=== PATIENT | male | born 1960 | race Caucasian/White ===

== ENCOUNTER 2021-08-11 09:43 | Outpatient (CLI) | payer BC, SELFPAY ==
--- NOTE | 2021-08-11 09:52 | US_ITS ---
WS: [id number] RIGHT UPPER QUADRANT ULTRASOUND HISTORY: RUQ PAIN COMPARISON: None available. Liver: 16.6 cm in length. Normal size liver. No bile duct dilatation or mass. Gallbladder: Normally distended gallbladder with no stones or wall thickening. CBD: 0.8 cm, mildly enlarged. Pancreas: Obscured by bowel gas. Right kidney: 11.2 cm in length. Normal size and echogenicity. No hydronephrosis or mass. Aorta and IVC: Unremarkable abdominal aorta and IVC. No ascites. US/US abdomen limited 57715 IMPRESSION: 1. Normal gallbladder. 2. Mildly dilated common bile duct of uncertain etiology. The pancreatic head and pancreas are not visualized due to bowel gas. Recommend follow-up CT of the abdomen and pelvis with IV and oral contrast. Pancreatic head needs to be eval uated for possible mass. There is no intrahepatic dilatation.
== END 2021-08-11 09:44 | disposition home or self-care (01) ==
LOC: RAD 09:45
PROVIDERS: PCP Family Medicine; Visit Provider Family Medicine
DX: R10.11 Right upper quadrant pain (principal)
CPT/HCPCS: 76705

== ENCOUNTER 2021-09-13 13:47 | Outpatient (CLI) | payer BC, SELFPAY ==
--- NOTE | 2021-09-13 13:59 | CT_ITS ---
WS: [id number] CT ABDOMEN PELVIS TECHNIQUE: Contrast-enhanced CT of the abdomen and pelvis with coronal and sagittal reformatted image s. CLINICAL INFORMATION: ABD PAIN, ABNORMAL U/S COMPARISON: Ultrasound August 11, 2021 DLP: 1073.[address] scans at [facility] use at least one of these dose optimization techniques: automated e xposure control; mA and/or kV adjustment per patient size (includes targeted exams where dose is matc hed to clinical indication); or iterative reconstruction. FINDINGS: Mild hepatomegaly. Normal spleen. Lung bases are well aerated. Gallbladder is contracted. Normal GE j unction. Adrenal glands are normal. No evidence of pancreatic head mass. Normal pancreatic parenchyma l enhancement. No intrahepatic biliary ductal dilatation. Sigmoid diverticulosis. No acute diverticulitis. No evidence of high-grade small or large bowel obstr uction. Normal appendix in the right lower quadrant. Calcified slightly enlarged prostate measuring 5 .2 CM. No abdominal or pelvic lymphadenopathy. No inguinal lymphadenopathy. CT/CT abdomen pelvis w con* [id number] IMPRESSION: 1. No evidence of pancreatic mass or pancreatic head lesion. No intrahepatic b iliary ductal dilatation. 2. Mild hepatomegaly. 3. Gallbladder is contracted. 4. Sigmoid diverticulosis. No evidence of acute diverticulitis. 5. Mild prostate enlargement. Recommend correlation PSA.
[2021-09-13] MEDS: iohexol 300 mg/mL 50 mL Btl PO (15:05)
[2021-09-13 16:04] LABS: Blood Urea Nitrogen 13 mg/dL (8-23); Glomerular Filtration Rate 75.7 mL/min (90-130)
[2021-09-13] MEDS: iohexol 350 mg/mL 100 mL Btl IV (16:13)
== END 2021-09-13 13:48 | disposition home or self-care (01) ==
PROVIDERS: PCP Family Medicine; Visit Provider Family Medicine
DX: R10.9 Unspecified abdominal pain (principal); R16.0 Hepatomegaly, not elsewhere classified; K57.30 Diverticulosis of large intestine without perforation or abscess without bleeding; N40.0 Benign prostatic hyperplasia without lower urinary tract symptoms
CPT/HCPCS: 74177; 82565; 84520; Q9967

== ENCOUNTER → 2023-09-27 09:39 | Outpatient (BNVA) | payer BC, SELFPAY | PROVIDERS: PCP Nurse Practitioner Family; Visit Provider Nurse Practitioner Family | DX: I10 Essential (primary) hypertension (principal); E11.9 Type 2 diabetes mellitus without complications; Z76.89 Persons encountering health services in other specified circumstances | CPT/HCPCS: 80053; 80061; 83036; 85025 ==

== ENCOUNTER 2023-11-30 12:56 | Outpatient (CLI) | payer BC, SELFPAY ==
[2023-11-30 13:28] VITALS: BMI 31.9
--- NOTE | 2023-11-30 13:33 | ECG_ITS ---
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 Interpretive Statements NAME OF STUDY: TREADMILL STRESS ECHOCARDIOGRAM INDICATION: Chronic Chest Pain PROCEDURE: The baseline electrocardiogram showed normal sinus rhythm with normal ST-Ts. At the baseline, the patient's blood pressure was 151/88 mm Hg with a heart rate of 66. The patient exercised for 6 minutes and 49 seconds on a standard Buddy protocol. Patient attained a maximum heart rate of 130 beats per minute(83% of the maximum predicted heart rate) with a blood pressure at the peak exercise of 184/88 mm Hg. The EKG at the peak exercise revealed [address]ressions in leads II, III, aVF and V4 to V6.. Patient did complain about shortness of breath, burning sensation in the chest and pain with exercise. The symptoms gradually subsided during the recovery phase. The echocardiographic pictures were taken at the baseline, immediate post exercise and during the recovery phase, at the standard views. During the recovery phase, there were no new changes. EKG changes reverted back to the baseline. Blood pressure at the end of the recovery phase was 157/93 mm Hg with a heart rate of 73 per minute. CONCLUSION: 1. Abnormal EKG response to treadmill exercise suggesting inferolateral wall ischemia. 2. Exercise-induced chest pain and shortness of breath 3. Somewhat impaired exercise tolerance, attained a maximum of 10.2 METs 4. Echocardiographic pictures were taken at the standard views; see separate report. 5. Elkins treadmill score was -8(moderate) Electronically Signed On 11-30-2023 20:41:58 ARCHITECT IN TRAINING by Irene Bledsoe M.D. [id number]
--- NOTE | 2023-11-30 13:34 | USCV_ITS ---
Stress Echo Minesh Mon Age: 63 Gender: M : 1960 Exam Date: 11/30/2023 13:45 Ordering Phys: Gail Canales NP Technologist: Hussain Branch [place] [facility] [place]: Chronic Chest Pain Rhythm: Sinus Patient History: Chest pain, Smoker, Hypertension, Diabetes mellitus Cardiac Medications: EDWARD Inhibitor Medications in past 24 hours: No cardiac medications Contrast: Stress Results Protocol: Buddy Total dose(mL): Exercise Duration (min:sec): 06:49 METS: 10.2 Resting HR: 65 Resting BP: 151 / 88 Peak HR: 130 Peak BP: 208 / 99 Max Predicted HR: 156 83 % Max Predicted HR Target HR: 133 Double Product: [id number] Stress Summary: The patient's target heart rate was not achieved The patient's target heart rate was not achieved due to fatigue BP Response: Abnormal increase in BP during/after stress Reason for Termination: Maximal effort/unable to continue Cardiac Symptoms: Chest pain, Short of Breath, Fatigue ECG Analysis Resting ECG: Please see separate report Stress ECG: Please see separate report Arrhythmia: Please see separate report MEASUREMENTS (Male/Female) Normal Values FINDINGS The patient echocardiogram revealed normal LV size and ejection fraction. Segmental wall motion analysis revealed no gross wall motion abnormalities. With the peak exercise, there was development of hypokinesis in the inferior wall region. Rest of the segments appear to have a normal response to exercise. During the recovery phase, the segmental wall motions returned to the baseline. No pericardial effusion was noted. CONCLUSIONS 1. Abnormal echocardiogram response to treadmill exercise, suggesting ischemia in the distribution of the right coronary artery. 2. Normal resting LV ejection fraction of around 60% Dr Irene Bledsoe MD [facility] (Electronically Signed) Final Date: 30 November 2023 20:49 S
[2023-11-30 14:23] VITALS: BP 154/87; PULSE 82
== END 2023-11-30 12:57 | disposition home or self-care (01) ==
LOC: CDL 12:56
PROVIDERS: PCP Nurse Practitioner Family; Visit Provider Nurse Practitioner Family
DX: R07.89 Other chest pain (principal); G89.29 Other chronic pain; R93.1 Abnormal findings on diagnostic imaging of heart and coronary circulation; R06.02 Shortness of breath; R94.39 Abnormal result of other cardiovascular function study
CPT/HCPCS: 93017; 93350

== ENCOUNTER 2023-12-15 10:55 | Inpatient (IN) | payer BC, SELFPAY ==
[2023-12-15] VITALS (30 sets, daily range): BP systolic 109–154; BP diastolic 62–102; PULSE 55–73; RESP 13–28; TEMP 36.4–37.2; O2SAT 92–98; BMI 31.6
--- NOTE | 2023-12-15 11:06 | XR_ITS ---
WS: [id number] XR chest 1V portable [id number] REASON FOR EXAM: chest pain FINDINGS: Moderate tortuosity and ectasia of the thoracic aorta. Normal heart size. Calcified granulomas disease in both hemithoraces. No acute or subacute pulmonary parenchymal or pleural abnormality. 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 IMPRESSION: No acute chest abnormality.
--- NOTE | 2023-12-15 11:06 | ECG_ITS ---
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 Measurements Intervals [place] Rate: 69 P: 55 TN: 150 QRS: 51 QRSD: 93 T: 51 QT: 376 QTc: 403 Interpretive Statements SINUS RHYTHM MINIMAL ST DEPRESSION [0.025+ mV ST DEPRESSION] No previous ECG available for comparison Electronically Signed On 12-16-2023 5:58:10 PUMP ERECTOR by Bernabe Acosta M.D. [id number] f
--- NOTE | 2023-12-15 11:30 | ED_ITS ---
HPI - Chest Pain 2 General: Chief Complaint: Chest Pain Stated Complaint: chest pains Time Seen by Provider: 12/15/23 11:28 Source: patient Mode of arrival: ambulatory History of Present Illness: 63-year-old male presents emergency room with complaints of chest discomfort with activity. In November he had a stress test that was positive for hypokinesis with stress. Is a stress echocardiogram. Additionally it showed abnormal EKG response to his exercise suggesting inferior lateral wall ischemia. He also had exercise-induced chest pain and dyspnea. He has been having progressively worsening symptoms to the point where he has difficult time walking now without getting symptomatic with shortness of breath and discomfort into his neck although he does not cite any specific chest pain. He is pain- free at the time of evaluation here. He has not previously been known to have coronary disease he does have diabetes mellitus MD complaint: chest pain Onset (ago): minute(s) Timing of current episode: episodic Prior episodes: Yes Onset: during rest Pain location: substernal Pain radiation: neck Severity: moderate Quality: aching and heaviness Relieving factors: rest Exacerbating factors: exertion Associated symptoms: Deny abdominal pain, diaphoresis, dyspnea, fever(s), leg edema, nausea, palpitations, sense of impending doom, syncope or vomiting Treatment prior to arrival: none Review of Systems 2 Const: Denies: fever(s), chills or diaphoresis Card: Denies: chest pain, palpitations or syncope Resp: Denies: dyspnea GI: Denies: abdominal pain, nausea or vomiting : Denies: dysuria, urinary frequency or urinary urgency Musc: Denies: neck pain or back pain Skin/Breast: Denies: rash PFSH ED 2 PFSH: Medical History (Updated 12/23/23 @ 10:14 by Matty Bernard DO) Cardiac ischemia Elevated troponin Dyslipidemia Tobacco abuse Social History Smoking and tobacco/nicotine status: current every day tobacco/nicotine user cigars Cigars smoked per week: 5 Alcohol intake: never Physical Exam 2 Const: COMMON NORMALS: no acute distress GENERAL APPEARANCE: cooperative and comfortable ORIENTATION/CONSCIOUSNESS: Yes awake, Yes oriented to person, Yes oriented to place and Yes oriented to time HENMT: COMMON NORMALS: normocephalic, atraumatic and hearing grossly normal bilaterally HEAD & SCALP: normocephalic and atraumatic Resp: COMMON NORMALS: normal respiratory effort, No retractions, No use of accessory muscles and clear to auscultation bilaterally AUSCULTATION: clear to auscultation bilaterally Cardio: COMMON NORMALS: regular rate, regular rhythm and No murmurs present (Cardio) RATE: regular rate RHYTHM: regular rhythm GI: COMMON NORMALS: Soft to palpation and No hepatosplenomegaly present A USCULTATION: Yes normoactive bowel sounds PALPATION: Yes Soft to palpation, No Tenderness to palpation present (GI), No Guarding due to palpation present (GI) and Yes No hepatosplenomegaly present Extremity: COMMON NORMALS: normal to inspection, capillary refill normal, no clubbing, cyanosis or edema, no calf tenderness and no pedal edema Neuro: SENSORIUM/ORIENTATION: Yes oriented to person, Yes oriented to place and Yes oriented to time Skin: COMMON NORMALS: no rashes or lesions noted GENERAL SKIN EXAM: no rashes or lesions noted Course 2 Vital Signs: Vital signs: Vital Signs Temperature 98.4 F 12/16/23 11:06 Pulse Rate 61 12/16/23 17:03 Respiratory Rate 16 12/16/23 17:03 Blood Pressure 149/83 12/16/23 17:03 Pulse Oximetry 96 12/16/23 17:03 Oxygen Delivery Me thod Room Air 12/16/23 16:00 MDM - Chest Pain Medical Decision Making Patient has very classic angina symptoms and they are escalating at this point discussed with Dr. Garcia. Given his first troponin is over 300 and a positive stress test will admit the patient for cardiac catheterization. Nitro and heparin initiated discussed with hospitalist orders written Dr. Garcia is seeing patient in the department Medical Records I reviewed the patient's medical records. Lab Data I reviewed the patient's lab results. 12/16/23 04:02 12/16/23 04:02 Laboratory Results WBC 9.26 10^3/uL (3.29-11.43) 12/15/23 11:50 RBC 5.19 10^6/uL (3.85-5.65) 12/15/23 11:50 Hgb 16.40 g/dL (11.27-16.99) 12/15/23 11:50 Hct 47.7 % (37-53) 12/15/23 11:50 MCV 91.9 fl (82-101) 12/15/23 11:50 MCH 31.6 pg (27-33) 12/15/23 11:50 MCHC 34.4 g/dL (30-55) 12/15/23 11:50 RDW 12.1 % (12.1-15.1) 12/15/23 11:50 Plt Count 196 10^3/cmm (157-399) 12/15/23 11:50 MPV 11.2 fL (7.4-10.4) H 12/15/23 11:50 Neut % (Auto) 63.4 % 12/15/23 11:50 Lymph % (Auto) 27.4 % 12/15/23 11:50 [place] % (Auto) 6.6 % 12/15/23 11:50 Eos % (Auto) 1.7 % 12/15/23 11:50 Baso % (Auto) 0.5 % 12/15/23 11:50 Neut # (Auto) 5.86 10^3/uL (1.8-7.7) 12/15/23 11:50 Lymph # (Auto) 2.5 10^3/uL (0.8-4.8) 12/15/23 11:50 [place] # (Auto) 0.6 10^3/uL (0.2-0.9) 12/15/23 11:50 Eos # (Auto) 0.2 10^3/uL (0.0-0.8) 12/15/23 11:50 Baso # (Auto) 0.1 10^3/uL (0.0-0.1) 12/15/23 11:50 Nucleated RBC % (auto) 0 % 12/15/23 11:50 Nucleated RBCs # 0.0 /100WBC 12/15/23 11:50 Sodium 137 mmol/L (136-145) 12/15/23 11:50 Potassium 4.6 mmol/L (3.5-5.1) 12/15/23 11:50 Chloride 99 mmol/L (98-107) 12/15/23 11:50 Carbon Dioxide 25 mmol/L (22-29) 12/15/23 11:50 Anion Gap 17.6 (5-19) 12/15/23 11:50 BUN 14 mg/dL (8-23) 12/15/23 11:50 Creatinine 0.7 mg/dL (0.7-1.2) 12/15/23 11:50 GFR Calculation 113.5 mL/min (90-130) 12/15/23 11:50 Glucose 261 mg/dL (65-115) H 12/15/23 11:50 Calculated Osmolality 294 mOsm/kg (285-295) 12/15/23 11:50 Calcium 9.5 mg/dL (8.5-10.5) 12/15/23 11:50 Iron 54 ug/dL (59-158) L 12/15/23 11:50 TIBC 246 mcg/dl 12/15/23 11:50 % Saturation 21.9 % (20-50) 12/15/23 11:50 Unsat Iron Binding 192 ug/dL (112-347) 12/15/23 11:50 Total Bilirubin 0.3 mg/dL (0.15-1.2) 12/15/23 11:50 AST 16 U/L (0-40) 12/15/23 11:50 ALT 18 U/L (0-41) 12/15/23 11:50 Alkaline Phosphatase 131 U/L (40-130) H 12/15/23 11:50 Troponin T Baseline 341 ng/L (0-15) H* 12/15/23 11:50 Total Protein 6.9 g/dL (6.6-8.7) 12/15/23 11:50 Albumin 4.2 g/dL (3.5-5.2) 12/15/23 11:50 Globulin 2.7 g/dL (1.3-4.6) 12/15/23 11:50 Vitamin B12 845 pg/mL (232-1245) 12/15/23 11:50 TSH 1.14 uIU/mL (0.27-4.20) 12/15/23 11:50 All radiology interpretation(s) finalized by discharge Discharge Plan Discharge Patient Disposition: Admitted As Inpatient Admit Provider: Raysa George Clinical Impression: Non-ST elevation OK (NSTEMI), Abnormal stress test, Diabetes, Hypertension Condition: Stable Discharge Diet: Cardiac and Diabetic Coding Level of Care Code ED Rib Builder for Chg Bony
--- NOTE | 2023-12-15 11:50 | PC.PHAR ---
pt states he takes care of his own medications-pt states the dr dced his ozempic about a week to a week and a half ago-pt states the dr told him to increase his metformin to 1000mg bid ext shows last filled 11/01/23 90d/s 500mg bid-pt states doesnt take any otc medications
[2023-12-15 11:56] LABS: Basophils # 0.1 10^3/uL (0.0-0.1); Basophils % 0.5 %; Eosinophils # 0.2 10^3/uL (0.0-0.8); Eosinophils % 1.7 %; Hematocrit 47.7 % (37-53); Lymphocytes # 2.5 10^3/uL (0.8-4.8); Lymphocytes % 27.4 %; Mean Corpuscular HGB Conc 34.4 g/dL (30-55); Mean Corpuscular Hemoglobin 31.6 pg (27-33); Mean Corpuscular Volume 91.9 fl (82-101); Mean Platelet Volume 11.2 fL (7.4-10.4); Monocytes # 0.6 10^3/uL (0.2-0.9); Monocytes % 6.6 %; Neutrophils # 5.86 10^3/uL (1.8-7.7); Neutrophils % 63.4 %; Nucleated Red Blood Cells % 0 %; Platelet Count 196 10^3/cmm (157-399); Red Blood Count 5.19 10^6/uL (3.85-5.65); Red Cell Distribution Width 12.1 % (12.1-15.1); White Blood Count 9.26 10^3/uL (3.29-11.43)
[2023-12-15 12:19] LABS: Alanine Aminotransferase 18 U/L (0-41); Albumin Level 4.2 g/dL (3.5-5.2); Alkaline Phosphatase 131 U/L (40-130); Anion Gap 17.6 (5-19); Aspartate Amino Transferase 16 U/L (0-40); Blood Urea Nitrogen 14 mg/dL (8-23); Calcium 9.5 mg/dL (8.5-10.5); Carbon Dioxide 25 mmol/L (22-29); Chloride 99 mmol/L (98-107); Globulin 2.7 g/dL (1.3-4.6); Glomerular Filtration Rate 113.5 mL/min (90-130); Glucose 261 mg/dL (65-115); Osmolality Calculated 294 mOsm/kg (285-295); Potassium 4.6 mmol/L (3.5-5.1); Sodium 137 mmol/L (136-145); Total Bilirubin 0.3 mg/dL (0.15-1.2); Total Protein 6.9 g/dL (6.6-8.7)
[2023-12-15 12:20] LABS: Troponin(5th) Baseline 341 ng/L (0-15)
[2023-12-15] MEDS: aspirin 81 mg Chew Tablet 324 MG PO (12:54)
--- NOTE | 2023-12-15 13:19 | P.CONIM_ITS ---
Providers/Reason For Consult 2 Consulting Physician/Specialty*: Cardiovascular medicine Reason for Consult*: Non-ST segment elevation VT Requesting Physician: Emergency room Attending Physician: Raysa George MD Primary Care Provider: Gail Canales NP History of Present Illness History of Present Illness Minesh Mon is a 63 year old male with no known history of coronary artery disease but with several risk factors. For several weeks he has been having episodes of rather classic angina with exertion. He had a stent stress test the other day which was a stress echo. It was read as positive for inferolateral ischemia both by EKG and by echo. He also has hypertension, diabetes and is a smoker with hyperlipidemia. He came into the emergency room today with another episode of chest pain. His troponin is 331. Currently he is free of pain. He has been given heparin bolus and heparin drip as well as aspirin. Review of Systems 2 Narrative: Review of systems is negative Medications/Allergies Home Medications Medication Instructions Recorded Confirmed Last Taken Type amlodipine 5 mg tablet 5 mg PO BEDTIME 12/15/23 12/15/23 12/14/23 History lisinopril 40 mg tablet 40 mg PO BEDTIME 12/15/23 12/15/23 12/14/23 History meloxicam 15 mg tablet 15 mg PO BEDTIME 12/15/23 12/15/23 12/14/23 History metformin 500 mg tablet 1,000 mg PO BID 12/15/23 12/15/23 Unknown History semaglutide 0.25 mg or 0.5 mg (2 0.5 mg SUBCUT Q7D 12/15/23 12/15/23 12/06/23 History mg/3 mL) subcutaneous pen injector dced ~12/06/23 (Ozempic) Allergies Allergy/AdvReac Type Severity Reaction Status Date / Time Penicillins Allergy Severe ALGY-Anaphy Verified 12/15/23 11:50 laxis PFSH Acute 2 PFSH: Medical History (Updated 12/15/23 @ 13:23 by Lon Garcia MD) Elevated troponin Dyslipidemia Tobacco abuse Social History Smoking and tobacco/nicotine status: current every day tobacco/nicotine user cigars Cigars smoked per week: 5 Alcohol intake: never Vitals/I&O/Wt Last Vital Signs Temp 98.1 F 12/15/23 10:56 Pulse 58 L 12/15/23 12:35 Resp 20 H 12/15/23 12:05 BP 121/71 12/15/23 12:35 Pulse Ox 92 12/15/23 12:35 O2 Del Method Room Air 12/15/23 12:35 Weight last 48 hrs Weight 190 lb Physical Exam 2 Narrative: GENERAL: In general he looks and feels well and is in no distress now. HEENT: Exam within normal limits. NECK: Supple without jugular vein distention. The carotid upstroke is normal without bruits. BACK: Exam normal. LUNGS: Clear. HEART: Regular rate and rhythm. ABDOMEN: Benign without organomegaly or tenderness. EXTREMITIES: No edema. NEUROLOGIC: Exam normal. SKIN: Unremarkable. 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 His EKG is normal. He needs angiography. We will arrange this is soon as possible. Consult Attestations 2 Medical Necessity Statement: Admit for angiography for unstable angina/non-ST segment elevation [place] and Moderate Time for a total of 35 minutes, includes reviewing past or interval history, examining/interviewing patient, placing orders, counseling patient/family/other support, updating patient/family/other support, discussing plan of care with staff, communicating with other healthcare providers, documenting encounter and coordinating care Diagnoses Hypertension I10 Abnormal stress test R94.39 Cardiac ischemia I25.9 Type 2 diabetes mellitus without complication, without long-term current use of insulin E11.9 Diabetes mellitus type: type 2 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
--- NOTE | 2023-12-15 13:46 | XACV_ITS ---
Exam Room: [facility] Ht: 170 cm Wt: 86 kg BSA: 2.04 m2 Gender: Male : 1960 Any Known Allergies: Penicillins Exam Priority: Routine Procedure(s): Procedure Description: Diagnostic procedure Procedure Description: Left Heart Catheterization Procedure Description: Left ventriculography Procedure Description: Coronary Angiography Jose ABDULLAHI; Diagnostic Cath Status: Urgent Diagnostic Findings * Patient with typical angina and abnormal stress echo admitted today with troponin elevation but normal EKG. Angiography performed via the right radial artery. * Coronary angiography reveals right coronary artery dominance. The left main coronary artery contains a 30 to 40% ostial stenosis. There is a circumflex which is relatively small. There is a 50 to 60% ostial circumflex lesion. There is a 60% very proximal first obtuse marginal branch stenosis. There is a ramus intermedius artery which contains a 50% diffuse proximal stenosis and then a 99% stenosis in the mid vessel. The LAD is a large vessel and relatively tortuous. There is a proximal diagonal branch which has a 50 to 60% stenosis in the proximal portion. The LAD has a 40 to 50% mid vessel stenosis and a 70% stenosis in a very tortuous part of the more distal vessel. The right coronary artery is a very tortuous artery and exhibits a length of the 70 to 80% diffuse stenosis in the midportion at a point of significant tortuosity. More distally just prior to the acute margin there is a 60 to 70% stenosis. Conclusions 1. Three-vessel coronary artery disease with moderate left main disease. Normal left ventricular function. Recommendations * I am not sure which artery is the culprit here. It is either the ramus or the right coronary artery. The right would be extremely difficult to intervene upon due to the tortuosity. I am not comfortable simply trying the right or the ramus interventionally and think that his best bet long-term will be bypass surgery given the nature of the three-vessel disease and the left main lesion. I do not have surgical backup here and if the right were to close during an attempt at intervention it would be difficult getting him to the operating room quickly enough. Interventional RX Recommendation: CABG Diagnostic RX Recommendation: CABG Anticoagulation: Heparin Ventriculography Ejection Fraction: 60.0 % Left Ventriculography Findings: * Very slight hypokinesis in the mid inferior wall. Mild mitral regurgitation. Pressures Phase:Rest AO : 92 / 60 ( 72 ) @ 2:23:00 PM 91 / 56 ( 71 ) @ 2:28:00 PM 94 / 57 ( 73 ) @ 2:35:00 PM 91 / 41 ( 63 ) @ 2:46:00 PM LV : 125 / -16 / 8 @ 2:44:00 PM 116 / -23 / -2 @ 2:45:00 PM 118 / -24 / -1 @ 2:45:00 PM 115 / -24 / -2 @ 2:45:00 PM Clinical Evaluation EBL: 5mL-10mL Procedural Details Procedure Consent Obtained. Pre-Procedure Time Out. Identified patient by full name and date of as verbalized by the patient/guarantor. Does the consent match the physician's order: Yes. Accurate & Complete Informed Consent: Yes. Inpatient/Outpatient History & Physical on Chart: Yes. If H&P is completed, is and addenduem needed: No. Visualize and Verify Site with Patient/Guarantor: N/A. Relevant Radiology Images available: Yes. The risks, benefits, and alternatives of sedation and/or procedure were discussed by physician. The patient agrees to continue. Procedure started. [facility] Clinical Fraility Score: 3: Managing Well. Office Services Coordinator Indications: ACS > 24 hours/NSTEMI. Chest Pain Symptom Assessment: Typical Angina Symptoms. Cardiovascular Instability: No. Correct patient, site and procedure confirmed by cath team. PERRLA. Strong, equal hand steam press tender bilaterally. Lungs clear x 5 lobes. IV Site on Arrival: 20 gauge in the left anticubital. IV Fluids: 0.9% NaCl at KVO. 0 mL infused prior to wood preserving plant laborer. Pre Procedural Pulses: bilateral radial was 3+. Oxygen started at 2liters/min via nasal canula. right groin was prepped with chloroprep then draped in the usual sterile fashion. right radial was prepped with chloroprep then draped in the usual sterile fashion. Baseline sample Acquired. HR: 53 BPM. Baseline sample Acquired. HR: 53 BPM. Patient's family in the wood preserving plant laborer waiting room. Dr. Garcia will update at the completion of the procedure. Equipment: 6F - Radial. Cardiac Cath Pack. ACIST Manifold Kit Model BT 2000. Heparinized Saline (2 units/mL), 1000 mL bag. Physician arrived. Physician scrubbed in. Immediate Pre-Procedure Time Out. Correct Patient: Yes; Correct Procedure: Yes; Correct Site: Yes; Correct Patient Position: Yes; Correct Supplies: Yes; Dried Flammable Prep: Yes; Blood Products Available: N/A;. Lidocaine 1% infiltrated to the right radial. Arterial access obtained. A 6 [place] Kevin catheter in over the exchange J wire. Multiple views taken of left coronary artery. Catheter redirected to the RCA. Multiple views taken of right coronary artery. Catheter removed over the exchange J wire. A 5 [place] Straight Pig catheter in over wire. Catheter removed over the exchange J wire. A 6 [place] TIG catheter in over the exchange J wire. Catheter removed over the exchange J wire. A 5 [place] Straight Pig catheter in over the exchange J wire. EDP Sample taken: LV 125/-17,8; HR: 54 BPM; SpO2: 98%. LV gram performed in CORONADO @ 10 mL/second for a total of 30 mL. EDP Sample taken: LV 116/-24,-3; HR: 62 BPM; SpO2: 98%. EDP Sample taken: LV 115/-25,-3; HR: 53 BPM; SpO2: 98%. Pullback taken: LV Off; AO Off; Mean: , Peak to Peak: , SEP: ; HR: 53 BPM; SpO2: 98%. Catheter removed over the exchange J wire. Dr. Garcia scrubbed out. A TR Band was successful obtaining hemostatsis at the Right Radial artery insertion site. Post Procedure: Pulses reassessed and unchanged. PERRLA. Strong, equal hand steam press tender bilaterally. No VTE prophylaxis required. Medication's Wasted: Lidocaine 1% = 2 mL. Medication's Wasted: Heparin = 1000 Units. Medication's Wasted: Other = Fentanyl 25 mcg. Medication's Wasted: Nitro = 49.8 mg. Total IV fluids: 30 mL. Post-op diagnosis: 3 vessell CAD. Complications: none. Estimated blood loss: 5mL-10mL. Responsiveness - Normal response to verbal stimuli; alert and oriented, PERRLA. Airway - Unaffected, no intervention required; spontaneous ventilation. Circulation: W/N/L, pulses unchanged. Nausea/Vomiting: No. Vital chart was stopped. Procedure completed. Patient transferred by bed to 1st floor. Access Site Site: Right Radial artery Sheath Size: 6 Fr Hemostasis Method: TR Band Hemostasis Success: Successful Procedure Medications Start: 2:18 PM Stop: 2:18 PM Medication: Versed Amount: 1 mg Route: I.V. Start: 2:18 PM Stop: 2:18 PM Medication: Fentanyl Amount: 25 mcg Route: I.V. Start: 2:18 PM Stop: 2:18 PM Medication: Fentanyl Amount: 25 mcg Route: I.V. Start: 2:20 PM Stop: 2:20 PM Medication: Versed Amount: 1 mg Route: I.V. Start: 2:21 PM Stop: 2:21 PM Medication: Nitrogylcerin Amount: 200 mcg Route: I.A. Start: 2:22 PM Stop: 2:22 PM Medication: Heparin Amount: 5000 units Route: I.V. Start: 2:38 PM Stop: 2:38 PM Medication: Fentanyl Amount: 25 mcg Route: I.V. I, the attending physician, have reviewed and verified all procedure medications. Yes, all medications given per verbal order History/Risk Factors Hypertension: Yes Dyslipidemia: Yes Peripheral Arterial Disease (PAD): No Myocardial Infarction (NC): No Obesity: Yes Renal Disease: No Tobacco Use: Current/Recent(w/in 1 year) Prior Interventions PCI: No CABG: No Valve Surgery: No Report Signatures Amended by Dr. Lon Garcia MD on 12/15/2023 03:[address] Lon Garcia MD on 12/15/2023 03:17 PM
[2023-12-15] MEDS: diphenhydrAMINE 50 mg Capsule PO (13:55)
[2023-12-15] MEDS: sodium chloride 0.9% 1,000 ML 50 ML IV (13:55)
[2023-12-15] MEDS: aspirin 325 mg Tablet PO (13:55)
--- NOTE | 2023-12-15 14:29 | PM.HP ---
Providers/Chief Complaint Admitting Physician: Raysa George MD Primary Care Provider: Gail Canales NP Chief Complaint: chest pains History of Present Illness Minesh Mon is a 63 year old male with past medical dyslipidemia, abnormal stress test, uncontrolled type 2 diabetes mellitus, hypertension presents to the ER today because of ongoing chest pain since Monday. Today is Monday. As per patient he had chest pain first few days ago which is more so on the left side radiating to the shoulder which resolved by itself with few recurrence of the symptoms yesterday associated with nausea. Today morning when he woke up he was having pain during the shoulder in the jaw when his and family convinced him to come to the ER. In the ER he was found to have non-ST elevation [place] with troponins of 331. Cardiology was consulted edema started on heparin drip. Patient currently is being taken to the Training And Development Project Leader for further evaluation and management. Review of Systems General: Reports: 10 or more systems reviewed and unremarkable except in HPI and below Const: Denies: fever(s), chills, body aches, change in appetite, change in weight, malaise, night sweats, diaphoresis, change in sleep pattern, daytime sleepiness or snoring Eyes: Denies: change in vision, blurry vision, photophobia, eye discomfort or eye discharge ENMT: Denies: throat pain, enlarged tonsils, hoarseness, mouth pain, oral sores, dry mouth, tinnitus, nasal congestion or post nasal drip Card: Denies: chest pain, palpitations, irregular heart rhythm, edema, swelling of feet/ankles, lightheadedness, syncope, pre-syncope, dyspnea on exertion, orthopnea, leg pain with exertion or acrocyanosis Resp: Denies: dyspnea, productive cough, non-productive cough, wheezing, stridor, pain on inspiration, change in phlegm color, hemoptysis or chest congestion GI: Denies: abdominal pain, nausea, vomiting, hematemesis, coffee ground emesis, dysphagia, heartburn, diarrhea, constipation, bloating, GI cramping, change in bowel habits, pain on defecation, hematochezia or melena : Denies: flank pain, difficulty urinating, dysuria, urinary frequency, urinary urgency, urinary hesitancy, urinary dribbling, difficulty starting urination, change in urine stream, nocturia or hematuria Musc: Denies: neck pain, back pain, extremity pain, joint pain, joint swelling, joint redness, joint stiffness or limited range of motion Neuro: Denies: headache(s), numbness in extremities, weakness in extremities, sensory changes, lack of coordination, difficulty walking, frequent falls, dizziness, vertigo, confusion, Slurred speech present, difficulty communicating thoughts or seizure-like activity Psych: Denies: anxiety, depression, mood swings, panic attacks, hopelessness or irritability Endo: Denies: polyuria, polydipsia, tired all the time, cold intolerance, excessive sweating, flushing or heat intolerance Garfield/Lymph: Denies: easy bruising or easy bleeding All/Imm: Denies: tongue swelling, facial swelling or acute wheezing Medications/Allergies Home Medications Medication Instructions Recorded Confirmed Last Taken Type amlodipine 5 mg tablet 5 mg PO BEDTIME 12/15/23 12/15/23 12/14/23 History lisinopril 40 mg tablet 40 mg PO BEDTIME 12/15/23 12/15/23 12/14/23 History meloxicam 15 mg tablet 15 mg PO BEDTIME 12/15/23 12/15/23 12/14/23 History metformin 500 mg tablet 1,000 mg PO BID 12/15/23 12/15/23 Unknown History semaglutide 0.25 mg or 0.5 mg (2 0.5 mg SUBCUT Q7D 12/15/23 12/15/23 12/06/23 History mg/3 mL) subcutaneous pen injector dced ~12/06/23 (Ozempic) Allergies Allergy/AdvReac Type Severity Reaction Status Date / Time Penicillins Allergy Severe ALGY-Anaphy Verified 12/15/23 11:50 laxis PFSH Acute PFSH: Medical History (Updated 12/15/23 @ 16:44 by Travis Fontaine MD) Elevated troponin Dyslipidemia Tobacco abuse Social History Smoking and tobacco/nicotine status: current every day tobacco/nicotine user cigars Cigars smoked per week: 5 Alcohol intake: never Vitals/I&O/Wt Last Vital Signs Temp 98.1 F 12/15/23 10:56 Pulse 58 L 12/15/23 12:35 Resp 20 H 12/15/23 12:05 BP 121/71 12/15/23 12:35 Pulse Ox 92 12/15/23 12:35 O2 Del Method Room Air 12/15/23 12:35 Weight last 48 hrs Weight 86.183 kg Physical Exam Narrative: General: No acute distress, AO x3 HEENT: PERRLA, pupils bilaterally equal and reactive Chest: Normal vesicular breath sounds, no added sounds, equal good air entry bilaterally CVS: S1-S2 regular, no murmurs, no tachycardia, no gallops, no rubs Abdomen: Soft, nontender, no organomegaly, bowel sounds present Neuro: No focal deficits, no facial deformity, AO x3, power 5/5 in all limbs Data 12/15/23 11:50 12/15/23 11:50 A&P Assessment and plan (1) Non-ST elevation [place] (NSTEMI): Cardiology consulted. Plan to go for cardiac angiogram. Recent positive stress echocardiogram. Received 324 mg of aspirin in the ER. Continue with heparin and nitro drip for now. -Check A1c, lipid panel. Aspirin 81 mg daily, atorvastatin 80 mg daily. Patient having bradycardia so we will hold off on beta-john. Echocardiogram. Will follow the results of cardiac angiogram and further evaluation accordingly. (2) Hypertension: Goal blood pressure less than 140/90 mmHg. Takes amlodipine 5 mg and lisinopril 40 mg at home. For now hold off on medications and will restart as per goal blood pressures. (3) Abnormal stress test: (4) Dyslipidemia: (5) Diabetes: Check A1c. As per the family patient has been having uncontrolled hyperglycemia for last few weeks at home with blood sugars running in 300s. Insulin sliding scale moderate dose protocol. Will decide about long acting insulin as per insulin requirements He 4 hours. 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 Protonix for PUD prophylaxis Heparin will suffice as DVT prophylaxis Attestations Medical Necessity Statement*: Admission for more than 2 midnights for management of non-ST elevation [place] requiring cardiac angiogram and revascularization Diagnoses Non-ST elevation [place] (NSTEMI) I21.4 Hypertension I10 Abnormal stress test R94.39 Dyslipidemia E78.5 Type 2 diabetes mellitus without complication, without long-term current use of insulin E11.9 Diabetes mellitus type: type 2 Diabetes mellitus skilled nursing insulin use: without intermodal owner operator truck driver use Diabetes mellitus complication status: without complication Tobacco abuse Z72.0
[2023-12-15 15:21] LABS: Troponin 5 2HR 340.6 ng/L (0-15); Troponin 5 2HR Delta -0.4 ABS# (0-10)
[2023-12-15 15:26] LABS: Iron 54 ug/dL (59-158); Percent Saturation 21.9 % (20-50); Thyroid Stimulating Hormone 1.14 uIU/mL (0.27-4.20); Total Iron Binding Capacity 246 mcg/dl; Unsaturated Iron Binding 192 ug/dL (112-347); Vitamin B12 845 pg/mL (232-1245)
[2023-12-15] MEDS: pantoprazole 40 mg SDV IVP (16:17)
--- NOTE | 2023-12-15 16:36 | PM.MISC ---
Miscellaneous Note Note: Mr. Mon's cardiac catheterization revealed normal LV function with three-vessel disease and moderate left main disease. His best short and long-term treatment is coronary bypass surgery. He does not have a preference of tertiary care centers. He requested to go to [place]. Either [facility] or [facility] will be sufficient. I have made a compact disc of the cardiac catheterization and placed it in his chart on the first floor. The echo has not yet been completed. Once this is completed we will make a compact disc of this as well. He is perfectly stable and transfer can occur at any time. I think he probably should be transferred from this hospital to the receiving hospital given the frequency of his chest pain and non-ST segment elevation [place].
[2023-12-15 17:50] LABS: Add Urine Microscopic? NO; Charge for UA Resulting for Rev
[2023-12-15 17:58] LABS: Glucose Point of Care 249 mg/dL (70-110)
[2023-12-15 18:16] LABS: Bilirubin Urine Neg (Negative); Blood Urine Neg (Negative); Glucose Urine UA Norm (Normal); Ketones Urine Negative (Negative); Leukocyte Esterase Urine Negative (Negative); Nitrate Urine Negative (Negative); Protein Urine Neg (Negative); Specific Gravity, Urine 1.005 (1.005-1.030); Urine Appearance Clear (CLEAR); Urine Color Yellow (Yellow); Urobilinogen Urine Norm (Negative); pH Urine 7 (5-7)
[2023-12-15] MEDS: insulin lispro 100 unit/1 mL SUBCUT (18:40)
[2023-12-15 21:03] LABS: Glucose Point of Care 138 mg/dL (70-110)
[2023-12-15] MEDS: atorvastatin 40 mg Tablet 80 MG PO (21:14)
[2023-12-15] MEDS: diphenhydrAMINE 25 mg Capsule PO (21:14)
[2023-12-16] VITALS (56 sets, daily range): BP systolic 110–182; BP diastolic 51–120; PULSE 53–85; RESP 0–25; TEMP 36.8–36.9; O2SAT 93–98; BMI 31.4
[2023-12-16 04:21] LABS: Basophils # 0.1 10^3/uL (0.0-0.1); Basophils % 0.5 %; Eosinophils # 0.3 10^3/uL (0.0-0.8); Eosinophils % 2.6 %; Hematocrit 46.8 % (37-53); Lymphocytes # 2.5 10^3/uL (0.8-4.8); Mean Corpuscular HGB Conc 32.7 g/dL (30-55); Mean Corpuscular Hemoglobin 30.8 pg (27-33); Mean Corpuscular Volume 94.2 fl (82-101); Mean Platelet Volume 11.4 fL (7.4-10.4); Monocytes # 0.8 10^3/uL (0.2-0.9); Monocytes % 8.4 %; Neutrophils # 6.26 10^3/uL (1.8-7.7); Neutrophils % 63.1 %; Nucleated Red Blood Cells % 0 %; Platelet Count 187 10^3/cmm (157-399); Red Blood Count 4.97 10^6/uL (3.85-5.65); Red Cell Distribution Width 12.1 % (12.1-15.1); White Blood Count 9.92 10^3/uL (3.29-11.43)
[2023-12-16 04:46] LABS: Alanine Aminotransferase 15 U/L (0-41); Albumin Level 3.6 g/dL (3.5-5.2); Alkaline Phosphatase 117 U/L (40-130); Anion Gap 14.3 (5-19); Aspartate Amino Transferase 13 U/L (0-40); Blood Urea Nitrogen 15 mg/dL (8-23); Calcium 9.1 mg/dL (8.5-10.5); Carbon Dioxide 26 mmol/L (22-29); Chloride 104 mmol/L (98-107); Globulin 2.9 g/dL (1.3-4.6); Glomerular Filtration Rate 97.3 mL/min (90-130); Glucose 249 mg/dL (65-115); Magnesium 1.9 mg/dL (1.7-2.3); Osmolality Calculated 299 mOsm/kg (285-295); Phosphorus 3.2 mg/dL (2.5-4.5); Potassium 4.3 mmol/L (3.5-5.1); Sodium 140 mmol/L (136-145); Total Bilirubin 0.2 mg/dL (0.15-1.2); Total Protein 6.5 g/dL (6.6-8.7)
[2023-12-16 04:53] LABS: Folate Level 11.9 ng/mL (4.5-32.2)
--- NOTE | 2023-12-16 06:00 | USCV_ITS ---
Elieser Minesh Age: 63 Gender: M : 1960 Exam Date: 12/16/2023 10:47 Ordering Phys: Travis Fontaine MD Technologist: Kolby Blackwell [place] [facility] [place]stem[place] BP: 149 / 66 HR: 55 Rhythm: Sinus Technical Quality: Adequate MEASUREMENTS (Male / Female) Normal Values 2D ECHO LVOT Diameter 2.1 cm LV Ejection Fraction MOD 2C 55.6 % LV Ejection Fraction 2C AL 54.5 % LA Diameter 3.2 cm LA Width 3.2 cm LA Height 4.1 cm RA Width 3.1 cm RA Height 4.4 cm Aorta at Sinotubular Diameter 2.6 cm IVC Diameter 1.7 cm M-MODE Aortic Annulus Diameter 2.9 cm LA Ao Ratio MM 1.1 MV E Point Septal Separation 0.7 cm DOPPLER AV Peak Velocity 212.7 cm/s LVOT Peak Velocity 109.0 cm/s AV Area Cont Eq vti 1.9 cm squared AV Area Cont Eq pk 1.9 cm squared MV Peak Velocity 98.0 cm/s MV Area PHT 2.2 cm squared Mitral E to A Ratio 0.5 MV E' Velocity 30.0 cm/s Mitral E to MV E' Ratio 5.3 Mitral E to LV E' Lateral Ratio 4.4 Mitral E to LV E' Septal Ratio 6.7 TR Peak Velocity 218.5 cm/s TR Peak Gradient 19.1 mmHg TR Mean Velocity 170.1 cm/s TR Mean Gradient 12.0 mmHg TR Velocity Time Integral 42.5 cm Right Atrial Pressure 3.0 mmHg Pulmonary Artery Systolic Pressu 22.1 mmHg PV Peak Velocity 84.0 cm/s RV Acceleration Time 0.1 s RV Ejection Time 0.3 s RV AcT/ET 0.4 FINDINGS Left Ventricle Normal left ventricular size, systolic function and wall thickness, with no regional wall motion abnormalities. Grade I/IV diastolic dysfunction (abnormal relaxation filling pattern), normal to mildly elevated filling pressures. Left ventricular ejection fraction is estimated at 60 %. Right Ventricle Normal right ventricular size and systolic function. Normal right ventricular systolic pressure. Right Atrium The right atrium is normal in size. Left Atrium The left atrium is normal in size. Mitral Valve Structurally normal mitral valve without significant stenosis or prolapse. There is no mitral regurgitation. Aortic Valve Structurally normal trileaflet aortic valve. No aortic valve stenosis. Trace to mild aortic valve regurgitation. Tricuspid Valve Structurally normal tricuspid valve. Trace tricuspid valve regurgitation. Pulmonic Valve Pulmonic valve not well visualized. Pericardium Normal pericardium without effusion. Aorta Normal ascending aorta dimension. IVC The inferior vena cava appears normal. CONCLUSIONS Normal left ventricular size, systolic function and wall thickness, with no regional wall motion abnormalities. Grade I/IV diastolic dysfunction (abnormal relaxation filling pattern), normal to mildly elevated filling pressures. Left ventricular ejection fraction is estimated at 60 %. Structurally normal trileaflet aortic valve. No aortic valve stenosis. Trace to mild aortic valve regurgitation. There are no prior echocardiogram studies to compare. Dr. Lon Garcia MD (Electronically Signed) Final Date: 16 December 2023 12:14 S
[2023-12-16 06:46] LABS: Glucose Point of Care 222 mg/dL (70-110)
--- NOTE | 2023-12-16 08:58 | P.PN_ITS ---
Subjective 2 Subjective: Minesh is getting a little anxious about being transferred. He had 1 episode of chest pain overnight relieved with sublingual nitroglycerin. He remains off all drips. Vitals/I&O/Wt Last Vital Signs Temp 98.3 F 12/16/23 07:07 Pulse 70 12/16/23 08:43 Resp 21 H 12/16/23 07:07 BP 149/66 12/16/23 07:07 Pulse Ox 97 12/16/23 08:43 O2 Del Method Room Air 12/16/23 08:43 12/15/23 12/16/23 12/16/23 22:59 06:59 14:59 Intake Total 520 / 520 Output Total 400 / 400 Balance 120 / 120 Weight last 48 hrs Weight 201 lb Weight 202 lb Weight 190 lb Physical Exam 2 Narrative: GENERAL: In general he looks and feels well HEENT: Exam within normal limits. NECK: Supple without jugular vein distention. The carotid upstroke is normal without bruits. BACK: Exam normal. LUNGS: Clear. HEART: Regular rate and rhythm. ABDOMEN: Benign without organomegaly or tenderness. EXTREMITIES: No edema. NEUROLOGIC: Exam normal. SKIN: Unremarkable. Data 12/16/23 04:02 12/16/23 04:02 A&P Assessment and plan (1) Hypertension: (2) Abnormal stress test: (3) Cardiac ischemia: (4) Tobacco abuse: (5) Dyslipidemia: (6) Elevated troponin: (7) Diabetes: Qualifiers: Diabetes mellitus type: type 2 Diabetes mellitus long term care social worker insulin use: without long term care social worker use Diabetes mellitus complication status: without complication Qualified Code(s): E11.9 - Type 2 diabetes mellitus without complications (8) Non-ST elevation [place] (NSTEMI): Plan I have made several calls to 3 separate institutions. Just now received a call back from [facility] in [place]. They are willing to accept him in transfer. They will call the nurses station on the second floor when a bed has been assigned. I have put the CD for the angiogram and the transfer packet. We are awaiting the echo which I will read and placed on a CD as soon as possible. I spoke to the nurse practitioner who works with the hospitalist service at [facility]. Attestations 2 Medical Necessity Statement*: Transfer to higher level of care for coronary bypass surgery. and High Time for a total of 60 minutes, includes reviewing past or interval history, examining/interviewing patient, placing orders, counseling patient/family/other support, updating patient/family/other support, discussing plan of care with staff, communicating with other healthcare providers, documenting encounter and coordinating care Diagnoses Hypertension I10 Abnormal stress test R94.39 Cardiac ischemia I25.9 Tobacco abuse Z72.0 Dyslipidemia E78.5 Elevated troponin R79.89 Type 2 diabetes mellitus without complication, without long-term current use of insulin E11.9 Diabetes mellitus type: type 2 Diabetes mellitus long term care social worker insulin use: without long term care social worker use Diabetes mellitus complication status: without complication Non-ST elevation [place] (NSTEMI) I21.4
[2023-12-16] MEDS: insulin lispro 100 unit/1 mL SUBCUT ×2 (09:58→12:10)
[2023-12-16] MEDS: aspirin 81 mg EC Tablet PO (09:58)
--- NOTE | 2023-12-16 10:12 | PM.TDS ---
Transfer Summary Providers Date of Admission: 12/15/23 12:47 Date of Discharge/Transfer: 12/16/23 Attending Provider at Admission: Raysa George MD Attending Provider at Transfer: Travis Fontaine MD Consults: Cardiology: Dr. Garcia Primary Care Provider: Gail Canales NP Transfer Plans: Anticipated date of transfer: 12/16/23. Receiving Facility: [facility]. Receiving Provider: Dr. Colorado. Diagnoses at Discharge Discharge Diagnosis (1) Hypertension: Status: Acute (2) Abnormal stress test: Status: Acute (3) Cardiac ischemia: Status: Acute (4) Tobacco abuse: Status: Acute (5) Dyslipidemia: Status: Acute (6) Elevated troponin: Status: Acute (7) Diabetes: Status: Acute Qualifiers: Diabetes mellitus complication status: without complication Diabetes mellitus skilled nursing insulin use: without buttermaker use Diabetes mellitus type: type 2 Qualified Code(s): E11.9 - Type 2 diabetes mellitus without complications (8) Non-ST elevation AK (NSTEMI): Status: Acute Reason for Visit Reason for Visit chest pains Hospital Course Hospital Course Minesh Mon is a 63 year old male with past medical dyslipidemia, abnormal stress test, uncontrolled type 2 diabetes mellitus, hypertension presents to the ER today because of ongoing chest pain since Monday. Today is Monday. As per patient he had chest pain first few days ago which is more so on the left side radiating to the shoulder which resolved by itself with few recurrence of the symptoms yesterday associated with nausea. Today morning when he woke up he was having pain during the shoulder in the jaw when his and family convinced him to come to the ER. In the ER he was found to have non-ST elevation AK with troponins of 331. Cardiology was consulted and he was started on a heparin and nitro drip. Patient underwent cardiac angiogram which showed normal LV function with three-vessel disease and a moderate left main disease. Patient was advised triple-vessel CABG for cardiac revascularization. Transfer to tertiary center was sought for CABG. He was accepted at [facility] by Dr. Colorado for further management. He has been transferred in hemodynamically stable condition. Physical Exam Narrative: General: No acute distress, AO x3 HEENT: PERRLA, pupils bilaterally equal and reactive Chest: Normal vesicular breath sounds, no added sounds, equal good air entry bilaterally CVS: S1-S2 regular, no murmurs, no tachycardia, no gallops, no rubs Abdomen: Soft, nontender, no organomegaly, bowel sounds present Neuro: No focal deficits, no facial deformity, AO x3, power 5/5 in all limbs TS Data Studies Completed and Pending Pending at discharge Category Date Time Status Platelet Count Q2D Lab 12/17/23 04:00 Ordered Platelet Count Q2D Lab 12/19/23 04:00 Ordered CV. echo complete* [id number] Routine Ultrasound 12/16/23 06:00 Ordered Completed Studies During Hospitalization Category Date Time Status TYPE PHOTOGRAPHY SUPERVISOR request for service Routine Exams 12/15/23 13:46 Completed XR chest 1V portable [id number] Stat Exams 12/15/23 11:06 Completed Laboratory Last Values WBC 9.92 10^3/uL (3.29-11.43) 12/16/23 04:02 RBC 4.97 10^6/uL (3.85-5.65) 12/16/23 04:02 Hgb 15.30 g/dL (11.27-16.99) 12/16/23 04:02 Hct 46.8 % (37-53) 12/16/23 04:02 MCV 94.2 fl (82-101) 12/16/23 04:02 MCH 30.8 pg (27-33) 12/16/23 04:02 MCHC 32.7 g/dL (30-55) 12/16/23 04:02 RDW 12.1 % (12.1-15.1) 12/16/23 04:02 Plt Count 187 10^3/cmm (157-399) 12/16/23 04:02 MPV 11.4 fL (7.4-10.4) H 12/16/23 04:02 Neut % (Auto) 63.1 % 12/16/23 04:02 Lymph % (Auto) 25.0 % 12/16/23 04:02 Dukes % (Auto) 8.4 % 12/16/23 04:02 Eos % (Auto) 2.6 % 12/16/23 04:02 Baso % (Auto) 0.5 % 12/16/23 04:02 Neut # (Auto) 6.26 10^3/uL (1.8-7.7) 12/16/23 04:02 Lymph # (Auto) 2.5 10^3/uL (0.8-4.8) 12/16/23 04:02 Dukes # (Auto) 0.8 10^3/uL (0.2-0.9) 12/16/23 04:02 Eos # (Auto) 0.3 10^3/uL (0.0-0.8) 12/16/23 04:02 Baso # (Auto) 0.1 10^3/uL (0.0-0.1) 12/16/23 04:02 Nucleated RBC % (auto) 0 % 12/16/23 04:02 Nucleated RBCs # 0.0 /100WBC 12/16/23 04:02 Sodium 140 mmol/L (136-145) 12/16/23 04:02 Potassium 4.3 mmol/L (3.5-5.1) 12/16/23 04:02 Chloride 104 mmol/L (98-107) 12/16/23 04:02 Carbon Dioxide 26 mmol/L (22-29) 12/16/23 04:02 Anion Gap 14.3 (5-19) 12/16/23 04:02 BUN 15 mg/dL (8-23) 12/16/23 04:02 Creatinine 0.8 mg/dL (0.7-1.2) 12/16/23 04:02 GFR Calculation 97.3 mL/min (90-130) 12/16/23 04:02 Glucose 249 mg/dL (65-115) H 12/16/23 04:02 POC Glucose 222 mg/dL (70-110) H 12/16/23 06:29 Calculated Osmolality 299 mOsm/kg (285-295) H 12/16/23 04:02 Calcium 9.1 mg/dL (8.5-10.5) 12/16/23 04:02 Phosphorus 3.2 mg/dL (2.5-4.5) 12/16/23 04:02 Magnesium 1.9 mg/dL (1.7-2.3) 12/16/23 04:02 Iron 54 ug/dL (59-158) L 12/15/23 11:50 TIBC 246 mcg/dl 12/15/23 11:50 % Saturation 21.9 % (20-50) 12/15/23 11:50 Unsat Iron Binding 192 ug/dL (112-347) 12/15/23 11:50 Total Bilirubin 0.2 mg/dL (0.15-1.2) 12/16/23 04:02 AST 13 U/L (0-40) 12/16/23 04:02 ALT 15 U/L (0-41) 12/16/23 04:02 Alkaline Phosphatase 117 U/L (40-130) 12/16/23 04:02 Troponin T Baseline 341 ng/L (0-15) H* 12/15/23 11:50 Troponin T 120 Minute 340.6 ng/L (0-15) H 12/15/23 14:29 Delta Troponin T -0.4 ABS# (0-10) L 12/15/23 14:29 Total Protein 6.5 g/dL (6.6-8.7) L 12/16/23 04:02 Albumin 3.6 g/dL (3.5-5.2) 12/16/23 04:02 Globulin 2.9 g/dL (1.3-4.6) 12/16/23 04:02 Vitamin B12 845 pg/mL (232-1245) 12/15/23 11:50 Folate 11.9 ng/mL (4.5-32.2) 12/16/23 04:02 TSH 1.14 uIU/mL (0.27-4.20) 12/15/23 11:50 Urine Color Yellow (Yellow) 12/15/23 17:44 Urine Appearance Clear (CLEAR) 12/15/23 17:44 Urine pH 7 (5-7) 12/15/23 17:44 Ur Specific [place] 1.005 (1.005-1.030) 12/15/23 17:44 Urine Protein Neg (Negative) 12/15/23 17:44 Urine Glucose (UA) Norm (Normal) 12/15/23 17:44 Urine Ketones Negative (Negative) 12/15/23 17:44 Urine Blood Neg (Negative) 12/15/23 17:44 Urine Nitrate Negative (Negative) 12/15/23 17:44 Urine Bilirubin Neg (Negative) 12/15/23 17:44 Urine Urobilinogen Norm mg/dL (Negative) 12/15/23 17:44 Ur Leukocyte Esterase Negative (Negative) 12/15/23 17:44 Recent Clincial Data Last Vital Signs Temp 98.3 F 12/16/23 07:07 Pulse 70 12/16/23 08:43 Resp 21 H 12/16/23 07:07 BP 149/66 12/16/23 07:07 Pulse Ox 97 12/16/23 08:43 O2 Del Method Room Air 12/16/23 08:43 Vital Signs Temp Pulse Resp BP Pulse Ox O2 Del Method O2 Del Method 12/16/23 08:43 70 97 Room Air 12/16/23 07:07 98.3 F 85 21 H 149/66 97 Room Air 12/16/23 06:00 54 L 12/16/23 04:00 98.2 F 61 17 144/82 96 Room Air 12/16/23 00:00 98.5 F 59 L 17 136/89 96 Room Air 12/15/23 22:30 97 Intake & Output/Weight 12/14/23 12/15/23 12/16/23 12/17/23 06:59 06:59 06:59 06:59 Intake Total 520 / 520 Output Total 400 / 400 Balance 120 / 120 Weight 91.172 kg Procedures Performed Cardiac Cath: Conclusions 1. Three-vessel coronary artery disease with moderate left main disease. Normal left ventricular function. Recommendations * I am not sure which artery is the culprit here. It is either the ramus or the right coronary artery. The right would be extremely difficult to intervene upon due to the tortuosity. I am not comfortable simply trying the right or the ramus interventionally and think that his best bet long-term will be bypass surgery given the nature of the three-vessel disease and the left main lesion. I do not have surgical backup here and if the right were to close during an attempt at intervention it would be difficult getting him to the operating room quickly enough. Interventional RX Recommendation: CABG Diagnostic RX Recommendation: CABG Anticoagulation: Heparin Ventriculography Ejection Fraction: 60.0 % Left Ventriculography Findings: * Very slight hypokinesis in the mid inferior wall. Mild mitral regurgitation. Vitals Last Vital Signs Temp 98.3 F 12/16/23 07:07 Pulse 70 12/16/23 08:43 Resp 21 H 12/16/23 07:07 BP 149/66 12/16/23 07:07 Pulse Ox 97 12/16/23 08:43 O2 Del Method Room Air 12/16/23 08:43 TS Medications Medications Acetaminophen (Acetaminophen 325 Mg Tablet) 650 mg PO Q6H PRN PRN Reason: Mild/Mod Pain Or Temp >/= 101 Aspirin (Aspirin 81 Mg Ec Tablet) 81 mg PO DAILY [facility] Last Admin: 12/16/23 09:58 Dose: 81 mg Atorvastatin Calcium (Atorvastatin 40 Mg Tablet) 80 mg PO BEDTIME [facility] Last Admin: 12/15/23 21:14 Dose: 80 mg Bisacodyl (Bisacodyl 5 Mg Tablet) 10 mg PO DAILY PRN; Protocol PRN Reason: Constipation (see protocol) Nitroglycerin/Dextrose (Nitroglycerin Drip) 50 mg in 250 mls @ 0 mls/hr IV .Q0M BRUCE; Protocol Dextrose (D5w) 500 mls @ 0 mls/hr IV ONCE PRN; Protocol PRN Reason: Adult Acute Hypoglycemia Prot Dextrose (D10w) 125 mls @ 750 mls/hr IV PRN PRN; Protocol PRN Reason: Adult Acute Hypoglycemia Nursing Protocol Dextrose (D10w) 250 mls @ 1,000 mls/hr IV PRN PRN; Protocol PRN Reason: Adult Acute Hypoglycemia Nursing Protocol Insulin Human Lispro (Insulin Lispro 100 Unit/1 Ml) 0 unit SUBCUT WM&BEDTIME [facility]; Protocol Last Admin: 12/16/23 09:58 Dose: 8 unit Lactulose (Lactulose Oral Liq 20 Gm/30 Ml Udc) 10 gm PO DAILY PRN; Protocol PRN Reason: Constipation (see protocol) Magnesium Hydroxide (Magnesium Hydroxide 30 Ml Udc) 30 ml PO DAILY PRN; Protocol PRN Reason: Constipation (see protocol) Morphine Sulfate (Morphine 4 Mg/Ml Sdv 1 Ml) 2 mg IVP Q4H PRN PRN Reason: SEVERE PAIN Nitroglycerin (Nitroglycerin 0.4 Mg Sublingual Tablet) 0.4 mg SUBLINGUAL Q5M PRN PRN Reason: CHEST PAIN Ondansetron HCl (Ondansetron 2 Mg/Ml Sdv 2 Ml) 4 mg IVP Q8H PRN PRN Reason: vomiting, or N/V if npo Pantoprazole Sodium (Pantoprazole 40 Mg Sdv) 40 mg IVP Q24H [facility] Last Admin: 12/15/23 16:17 Dose: 40 mg Discontinued Medications Aspirin (Aspirin 81 Mg Chew Tablet) 324 mg PO NOW ONE Stop: 12/15/23 12:52 Last Admin: 12/15/23 12:54 Dose: 324 mg Aspirin (Aspirin 325 Mg Tablet) 325 mg PO ONCE ONE Stop: 12/15/23 13:25 Last Admin: 12/15/23 13:55 Dose: 325 mg Diphenhydramine HCl (Diphenhydramine 50 Mg Capsule) 50 mg PO ONCE ONE Stop: 12/15/23 13:25 Last Admin: 12/15/23 13:55 Dose: 50 mg Diphenhydramine HCl (Diphenhydramine 25 Mg Capsule) 25 mg PO NOW ONE Stop: 12/15/23 20:34 Last Admin: 12/15/23 21:14 Dose: 25 mg Fentanyl (Fentanyl 50 Mcg/Ml Inj 2ml) Confirm Administered Dose 100 mcg .ROUTE .STK-MED ONE Stop: 12/15/23 13:49 Heparin Sodium (Porcine) (Heparin 5,000 Unit/Ml Inj 1 Ml) 0 unit IV PRN PRN; Protocol PRN Reason: Heparin weight-base protocol Heparin Sodium (Porcine) (Heparin 5,000 Unit/Ml Inj 1 Ml) Confirm Administered Dose 5,000 unit .ROUTE .STK-MED ONE Stop: 12/15/23 13:47 Heparin Sodium (Porcine) (Heparin 5,000 Unit/Ml Inj 1 Ml) Confirm Administered Dose 5,000 unit .ROUTE .STK-MED ONE Stop: 12/15/23 14:18 Heparin Sodium/Sodium Chloride (Heparin Drip) 25,000 unit in 500 mls @ 0 mls/hr IV .Q0M [facility]UCE; Protocol Sodium Chloride (Sodium Chloride 0.9%) 1,000 mls @ 50 mls/hr IV .Q20H ONE Stop: 12/16/23 09:23 Last Admin: 12/15/23 13:55 Dose: 50 mls/hr Lidocaine HCl (Xylocaine) Confirm Administered Dose 20 mls @ as directed .ROUTE .STK-MED ONE Stop: 12/15/23 13:48 Sodium Chloride (Sodium Chloride 0.9%) 1,000 mls @ 100 mls/hr IV .Q10H [facility] Last Admin: 12/15/23 16:09 Dose: Not Given Midazolam HCl (Midazolam 1 Mg/Ml Inj 2 Ml) Confirm Administered Dose 2 mg .ROUTE .STK-MED ONE Stop: 12/15/23 13:50 Midazolam HCl (Midazolam 1 Mg/Ml Inj 2 Ml) Confirm Administered Dose 2 mg .ROUTE .STK-MED ONE Stop: 12/15/23 14:26 Nitroglycerin (Nitroglycerin 5 Mg/Ml Sdv 10 Ml) Confirm Administered Dose 50 mg .ROUTE .STK-MED ONE Stop: 12/15/23 13:49 Allergies Penicillins Allergy (Severe, Verified 12/15/23 11:50) ALGY-Anaphylaxis Home Medications amlodipine 5 mg tablet 5 mg PO BEDTIME 12/15/23 [History Confirmed 12/15/23] lisinopril 40 mg tablet 40 mg PO BEDTIME 12/15/23 [History Confirmed 12/15/23] meloxicam 15 mg tablet 15 mg PO BEDTIME 12/15/23 [History Confirmed 12/15/23] metformin 500 mg tablet 1,000 mg PO BID 12/15/23 [History Confirmed 12/15/23] semaglutide 0.25 mg or 0.5 mg (2 mg/3 mL) subcutaneous pen injector (Ozempic) 0.5 mg SUBCUT Q7D 12/15/23 [History Confirmed 12/15/23] Discharge Plan Discharge Patient Disposition: Xfer Other Condition: Stable Prescriptions: No Action metformin 500 mg tablet 1,000 mg PO BID meloxicam 15 mg tablet 15 mg PO BEDTIME amlodipine 5 mg tablet 5 mg PO BEDTIME lisinopril 40 mg tablet 40 mg PO BEDTIME Ozempic 0.25 mg or 0.5 mg (2 mg/3 mL) pen injector 0.5 mg SUBCUT Q7D Rx Instructions: dced ~12/06/23 Referrals: Kayla Harden FNP [Nurse Practitioner] - (Kayla Harden's Office has your information and will be calling you to schedule a follow up appointment. You can call them at the number listed if you have any questions or concerns. Thank you.) Gail Canales NP [Primary Care Provider] - 12/21/23 9:20 am Discharge Diet: Cardiac and Diabetic Patient Instructions: Coronary Angioplasty (DC), Opioid Safety, Post Angiogram Home Care Instructions Transfer Attestations Time Spent in Transfer Care: greater than 30 min Specific Discharge Activities: educating patient, educating and/or supporting family/caregiver, discussing with pcp/other providers, discussing with therapeutic case manager/social workers/dc planners, documenting/other paperwork and evaluating patient/reviewing data Status at Transfer: Cognitive status at transfer: cognitively intact; Behavioral status at transfer: cooperative; Functional status at transfer: independent ambulation; Overall status at transfer: patient is progressing back to baseline Quality Metrics Clinical Quality Measures [ No reported AMI, CVA or VTE this stay] Coding Level of Care Code 98605 Total time (in minutes) for Discharge: 60 Diagnoses Hypertension I10 Abnormal stress test R94.39 Cardiac ischemia I25.9 Tobacco abuse Z72.0 Dyslipidemia E78.5 Elevated troponin R79.89 Type 2 diabetes mellitus without complication, without long-term current use of insulin E11.9 Diabetes mellitus complication status: without complication Diabetes mellitus buttermaker insulin use: without buttermaker use Diabetes mellitus type: type 2 Non-ST elevation AK (NSTEMI) I21.4
--- NOTE | 2023-12-16 11:26 | PC.CHAP ---
Pastoral Care Encounter/Spiritual Assessment Type of Contact [] Declined straightener gun parts visit [] Patient/Family/Request visit [] Outpatient visit [] Follow-up visit [] Physician referral [] Code/Alert [] Routine visit [] Staff referral [] Actively dying [] Patient sleeping [] Family support [] [] Out of room [] Palliative care [] [] Receiving care in room [] Pre-surgical visit [] Trauma [] Long length of stay [] ICU visit [] Other: Relational/Emotional Strength [x] Patient feels connected with others/family/visitors/staff [] Distress [] Loneliness/isolation [] Abandonment Spirituality of Patient [x] Person of Megha [] Attends Mu-Ism of their Megha [] Believes in Prayer [] Reads Bible or Uatsdin materials [] There are Spiritual issues to be addressed [employer]stream [employer]ufacturing Technician Interventions [x] Prayer [] Active listening [] Non-anxious presence [] Spiritual/emotional support [] Crisis/trauma care [] Spiritual counseling [] Bereavement support [] Provided bereavement packet [] Provided Bible/devotional materials [] Provided toy/stuffed animal, coloring book to patient or family member [] Provided Communion [] Anointing/[place] [] Salvation [] Completed spiritual assessment [] Other: Impact on Illness or Injury [] Angry [] Fearful [] Anxious [] Often cries [] Exhaustion [] Unable to work [] Unable to attend mandaeism [] Unable to walk/stand [] Unable to read [] Unable to drive [] Unable to eat/drink [] Unable to sleep [] Unable to be with family [] Patient intubated [] Other: Summary Prayed for patient with patient and 5 family members Time spent with patient
[2023-12-16 11:44] LABS: Glucose Point of Care 217 mg/dL (70-110)
[2023-12-16] MEDS: lisinopril 10 mg Tablet PO (12:10)
--- NOTE | 2023-12-16 15:14 | PC.NURSE ---
report called to [facility] in [place] and given to Sudheer Spain RN in unit 4D.
[2023-12-16 16:33] LABS: Glucose Point of Care 146 mg/dL (70-110)
--- NOTE | 2023-12-16 16:40 | PC.NURSE ---
[facility] here to take pt to [facility] to unit 4D room #2950 bed 2.
--- NOTE | 2023-12-16 17:02 | PC.NURSE ---
Discharge Note Patient discharged to [[facility] in [place], [place]] via [[facility] stretcher] accompanied by [Ambulance personnel]. Discharge instructions reviewed with patient and/or telemarketing representative. Mobile pharmacy medications and/or prescriptions provided. Belongings/home medications returned.
== END 2023-12-16 16:45 | disposition short-term general hospital (02) | DRG 282 ==
LOC: ER 11:49 → CSU 12:57
PROVIDERS: Emergency Medicine; Internal Medicine Cardiovascular Disease; Admitting Provider Student in an Organized Health Care Education/Training Program; Emergency Provider Family Medicine; PCP Nurse Practitioner Family; Visit Provider Student in an Organized Health Care Education/Training Program
PROC: B2111ZZ Fluoroscopy of Multiple Coronary Arteries using Low Osmolar Contrast (ICD-10-PCS; principal; 2023-12-15 14:00)
DX: I21.4 Non-ST elevation (NSTEMI) myocardial infarction (principal); I10 Essential (primary) hypertension; E11.65 Type 2 diabetes mellitus with hyperglycemia; I25.110 Atherosclerotic heart disease of native coronary artery with unstable angina pectoris; E78.5 Hyperlipidemia, unspecified; F17.290 Nicotine dependence, other tobacco product, uncomplicated; Z79.84 Long term (current) use of oral hypoglycemic drugs; Z79.82 Long term (current) use of aspirin
CPT/HCPCS: 36415; 36416; 71045; 80053; 81003; 82607; 82746; 82962; 83540; 83550; 83735; 84100; 84443; 84484; 85025; 93005; 93306; 93458; 94660; 94664; 96365; 96367; 96372; 96375; 99152; 99153; 99285; C1769; C1887; C1894; C9113; J1644; J1815; J2250; J3010; J3490; J7030; Q0163; Q9967

== ENCOUNTER → 2023-12-26 15:26 | Outpatient (BNVA) | payer BC, SELFPAY | PROVIDERS: PCP Nurse Practitioner Family; Visit Provider Nurse Practitioner Family | DX: E11.9 Type 2 diabetes mellitus without complications (principal) | CPT/HCPCS: 83036 ==

== ENCOUNTER 2024-03-07 13:07 | Emergency (ER) | payer BC, MEDICARE, SELFPAY ==
[2024-03-07 13:59] VITALS: BP 157/76; PULSE 65; TEMP 36.8; O2SAT 99; BMI 34.4
--- NOTE | 2024-03-07 14:05 | ECG_ITS ---
[facility] Test Date: 2024-03-07 Pat Name: Minesh Mon Department: Room: Gender: Male Angio Technologist: : 1960 Requested By: Sacha Astorga Order Number: [id number] Zena MD: Irene Bledsoe M.D. Measurements Intervals [place] Rate: 59 P: 53 MO: 154 QRS: 10 QRSD: 106 T: 102 QT: 396 QTc: 395 Interpretive Statements SINUS BRADYCARDIA POSSIBLE LEFT ATRIAL ENLARGEMENT [-0.1mV P-WAVE IN V1/V2] NONSPECIFIC ST & T-WAVE ABNORMALITY Compared to ECG 12/15/2023 11:01:37 T-wave abnormality now present Sinus rhythm no longer present ST (T wave) deviation no longer present Electronically Signed On 03-07-2024 23:13:45 CDT by Irene Bledsoe M.D. [email or web address]
--- NOTE | 2024-03-07 16:12 | ED_ITS ---
HPI - Back Pain/Injury General: Chief Complaint: Back Pain/Injury Stated Complaint: hip and back pain Time Seen by Provider: 03/07/24 16:12 History of Present Illness: 64-year-old male patient comes in today for complaints of low back pain radiating to the right hip. Patient reports pain has increased with movement. Patient appears nontoxic. Patient appears no acute distress. Patient has had recent bypass in December and is still recovering from it. Patient reports that overall he feels well with that except for occasional anterior right chest pain that is exacerbated with certain movement. Patient denies any loss of bowel or bladder control. Patient reports no fever. Patient does have a history of diabetes, coronary artery disease, hypertension and high cholesterol. Review of Systems General: Reports: 10 or more systems reviewed and unremarkable except in HPI and below Musc: Reports: back pain [facility] ED PFSH: Medical History Cardiac ischemia Elevated troponin Dyslipidemia Tobacco abuse Social History Smoking and tobacco/nicotine status: current every day tobacco/nicotine user cigars Cigars smoked per week: 5 Alcohol intake: never Physical Exam Const: COMMON NORMALS: alert HENMT: COMMON NORMALS: normocephalic HEAD & SCALP: normocephalic Neck/C-Spine: COMMON NORMALS: full ROM Chest: COMMONS NORMALS: normal palpation of entire chest wall Resp: COMMON NORMALS: normal respiratory effort and clear to auscultation bilaterally AUSCULTATION: clear to auscultation bilaterally Cardio: COMMON NORMALS: regular rate and regular rhythm RATE: regular rate RHYTHM: regular rhythm GI: COMMON NORMALS: Soft to palpation and non-tender PALPATION: Yes Soft to palpation Back/Pelvis: THORACIC SPINE/UPPER BACK: Yes normal to inspection LUMBAR SPINE/LOWER BACK: Yes lumbar spinal tenderness Lumbar spinal tenderness location: L5 and Yes paraspinal muscle tenderness Lumbar paraspinal muscle tenderness: right Right lumbar paraspinal muscle tenderness: L5 Extremity: COMMON NORMALS: normal to inspection and full ROM Neuro: SENSORIUM/ORIENTATION: Yes alert Skin: COMMON NORMALS: turgor normal GENERAL SKIN EXAM: turgor normal Course Vital Signs: Vital signs: Vital Signs Temperature 98.2 F 03/07/24 13:59 Pulse Rate 61 03/07/24 16:17 Respiratory Rate 16 03/07/24 16:17 Blood Pressure 154/80 03/07/24 16:17 Pulse Oximetry 97 03/07/24 16:17 Oxygen Delivery Me thod Room Air 03/07/24 16:17 MDM - Back Pain/Injury Medical Decision Making 64-year-old male patient comes in today for complaints of low back pain. On exam patient has some tenderness of the vertebral area of L5. Patient also has some right-sided muscle tightness and tenderness of the lower lumbar. Patient moves all extremities well. Patient does have antalgic gait. Vital signs are normal except for some mild elevation in blood pressure. Differential diagnosis includes but not limited to intervertebral disc disease, facet arthropathy, lumbar strain, sciatica. CT noted significant central stenosis of at L4-L5 with impingement of the descending nerve roots. Patient reports no loss of bowel or bladder control. Patient is able to ambulate. Will start patient on some hydrocodone to assist with his pain. Patient is diabetic and is not a good candidate for steroids. Patient does have meloxicam at home that he is using routinely for anti-inflammatory. Patient reports understanding of care plan and need for follow-up with orthopedic spine. Case management was requested to have patient follow-up with Dr. Klein in orthopedics office. Patient was agreeable to plan. Labs Radiology Impressions Lumbar Spine CT 03/07/24 16:16 IMPRESSION: 1. Moderate-severe L4-L5 central stenosis with suspected contacting/impingement of the descending L5 nerve roots. Consider correlation with MRI for further detail. All radiology interpretation(s) finalized by discharge Discharge Plan Discharge Patient Disposition: Home Clinical Impression: Neuroforaminal stenosis of lumbar spine Condition: Stable Prescriptions: New hydrocodone-acetaminophen 5-325 mg tablet 1 tab PO Q6H PRN (Reason: pain (scale score 7-10)) Qty: 20 0RF No Action insulin glargine [Basaglar KwikPen U-100 Insulin] 100 unit/mL (3 mL) insulin pen 29 unit SUBCUT QAM insulin lispro [Humalog KwikPen Insulin] 100 unit/mL insulin pen See Rx Instructions .ROUTE .COMPLEX Qty: 15 1RF Rx Instructions: sliding scale: check blood sugar before meals three times a day: 0-150= 0 units 151-200=2 units 201-250=4 units 251-300=6 units 301-350= 8 units 351-400 = 10 units, greater than [address] or go to ER.; max 30 units daily metoprolol tartrate 25 mg tablet 25 mg PO BID gabapentin 300 mg capsule 300 mg PO DAILY amlodipine 10 mg tablet 10 mg PO DAILY Qty: 90 0RF metformin 1,000 mg tablet 1,000 mg PO BIDWMEAL Qty: 180 3RF cyclobenzaprine 10 mg tablet 10 mg PO TID PRN (Reason: muscle spasm) Qty: 30 0RF aspirin 81 mg tablet,delayed release (DR/EC) 81 mg PO DAILY Qty: 90 1RF atorvastatin 80 mg tablet 80 mg PO DAILY Qty: 90 1RF clopidogrel 75 mg tablet 75 mg PO DAILY Qty: 90 1RF meloxicam 15 mg tablet 15 mg PO BEDTIME Qty: 90 0RF buspirone 5 mg tablet 5 mg PO BID Discharge Orders: Discharge ED (Routine); Ordered 03/07/24 Ordered By: Sacha Sanches Referrals: Gail Canales NP [Primary Care Provider] - Discharge Diet: Usual diet Discharge Activity: Increase activity as tolerated Patient Instructions: Back Pain (ED) Activity Restrictions/Additional Instructions: Use Tylenol to help control the pain. Use hydrocodone for severe pain. Activity as tolerated. Follow-up with spinal critical care nurse specialist for further evaluation and treatment. Return to ED for new concerns or worsening symptoms. Case management will contact you regarding follow-up appointment with spinal critical care nurse specialist. Coding Level of Care Code ED Waste Chopper for Nancy Lovett
[2024-03-07 16:16] VITALS: PULSE 75; O2SAT 97
--- NOTE | 2024-03-07 16:16 | CTR_ITS ---
PROCEDURE INFORMATION: Exam: CT Lumbar Spine Without Contrast Exam date and time: 03/07/2024 4:25 PM Age: 64 years old Clinical indication: Prior surgery; Surgery date: 3-7 days post-operative; Surgery type: Triple bypass; Patient HX: Nki, low back pain with a knot on the right side of back per patient; Additional info: Persistent lumbar pain TECHNIQUE: Imaging protocol: Computed tomography of the lumbar spine without contrast. Radiation optimization: All CT scans at this facility use at least one of these dose optimization techniques: automated exposure control; mA and/or kV adjustment per patient size (includes targeted exams where dose is matched to clinical indication); or iterative reconstruction. COMPARISON: CT abdomen pelvis w con* [id number] 09/13/2021 4:10 PM RADIATION DOSE METRICS: Total DLP (mGy-cm): 1140 FINDINGS: Bones/joints: 2 mm degenerative grade 1 anterolisthesis of L4 on L5 secondary to facet arthrosis. No evidence of acute fracture or subluxation. Moderate multilevel spondylosis of the lumbar spine with facet arthrosis and osteophytosis. Severe endplate degeneration is noted at L1-L2. 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 No evidence of osseous erosion to suggest osteomyelitis. L1-L2: Circumferential disc bulge with an anterior disc osteophyte complex and severe endplate degeneration, which along with moderate right-sided facet arthrosis results in mild right-sided foraminal stenosis. No central stenosis. L2-L3: Disc bulge and mild-moderate facet arthrosis results in mild right-sided foraminal stenosis. No central stenosis. L3-L4: Disc bulge and mild facet arthrosis results in moderate left-sided foraminal stenosis with contacting of the undersurface of the exiting left L3 nerve root. Mild central stenosis. L4-L5: Disc bulge and moderate-severe facet arthrosis results in moderate bilateral foraminal stenosis with contacting of the undersurface of the exiting L4 nerve roots. Disc bulge and ligamentum hypertrophy results in moderate-severe narrowing of the midline thecal sac to 5 mm in AP diameter with effacement of the lateral recesses and likely contacting/impingement of the descending L5 nerve roots. L5-S1: Disc bulge and moderate facet arthrosis results in mild-moderate bilateral foraminal stenosis with slight contacting of the undersurfaces of the exiting L5 nerve roots. No central stenosis. Soft tissues: The paraspinal soft tissues are grossly unremarkable. No evidence of acute abnormality in the visualized retroperitoneal soft tissues. No evidence of fluid collection hematoma. CT/CT lumbar spine wo con* [id number] IMPRESSION: 1. Moderate-severe L4-L5 central stenosis with suspected contacting/impingement of the descending L5 nerve roots. Consider correlation with MRI for further detail.
[2024-03-07 16:17] VITALS: BP 154/80; PULSE 61; RESP 16; O2SAT 97
[2024-03-07] MEDS: ketorolac 30 mg/mL INJ IM (16:20)
[2024-03-07 17:28] VITALS: BP 144/75; PULSE 72; RESP 18; O2SAT 96
--- NOTE | 2024-03-09 10:34 | DCPLANNER ---
Sent a referral to ortho 03-09-24 @[id number]
== END 2024-03-07 17:30 | disposition home or self-care (01) ==
PROVIDERS: Emergency Provider Nurse Practitioner Family; PCP Nurse Practitioner Family
DX: M48.061 Spinal stenosis, lumbar region without neurogenic claudication (principal); Z79.02 Long term (current) use of antithrombotics/antiplatelets; Z79.82 Long term (current) use of aspirin; Z79.84 Long term (current) use of oral hypoglycemic drugs; Z79.4 Long term (current) use of insulin; E78.5 Hyperlipidemia, unspecified; F17.290 Nicotine dependence, other tobacco product, uncomplicated
CPT/HCPCS: 72131; 93005; 96372; 99284; J1885

== ENCOUNTER → 2024-03-14 13:20 | Outpatient (BNVA) | payer BC, MEDICARE, SELFPAY | PROVIDERS: PCP Nurse Practitioner Family; Visit Provider Orthopaedic Surgery | DX: M54.9 Dorsalgia, unspecified (principal) | CPT/HCPCS: 72110 ==

== ENCOUNTER → 2024-03-29 09:00 | Outpatient (BNVA) | payer MEDICARE, BC, SELFPAY | PROVIDERS: PCP Nurse Practitioner Family; Visit Provider Nurse Practitioner Family | DX: I10 Essential (primary) hypertension (principal); E11.9 Type 2 diabetes mellitus without complications; E78.5 Hyperlipidemia, unspecified; M54.31 Sciatica, right side | CPT/HCPCS: 80053; 80061; 83036 ==

== ENCOUNTER → 2024-04-04 12:51 | Outpatient (BNVA) | payer MEDICARE, BC, SELFPAY | PROVIDERS: PCP Nurse Practitioner Family; Visit Provider Orthopaedic Surgery | DX: M54.9 Dorsalgia, unspecified (principal); M48.062 Spinal stenosis, lumbar region with neurogenic claudication | CPT/HCPCS: 99214 ==

== ENCOUNTER → 2024-04-10 12:17 | Outpatient (BNVA) | payer MEDICARE, BC, SELFPAY | PROVIDERS: PCP Nurse Practitioner Family; Visit Provider Internal Medicine | DX: I10 Essential (primary) hypertension (principal); Z95.1 Presence of aortocoronary bypass graft; Z87.891 Personal history of nicotine dependence | CPT/HCPCS: 99214 ==

== ENCOUNTER 2024-04-19 06:00 | Outpatient (RCR) | payer BC, MEDICARE, SELFPAY | END 2024-05-05 23:59 | disposition home or self-care (01) | LOC: GPT 06:00 | PROVIDERS: Visit Provider Orthopaedic Surgery | DX: M54.9 Dorsalgia, unspecified (principal); G89.29 Other chronic pain | CPT/HCPCS: 97110; 97112; 97140; 97162 ==

== ENCOUNTER 2024-05-22 10:08 | Outpatient (CLI) | payer MEDICARE, BC, OTHER, SELFPAY ==
--- NOTE | 2024-05-22 10:13 | XRR_ITS ---
PROCEDURE INFORMATION: Exam: XR Left Ribs with PA Chest Exam date and time: 05/22/2024 10:27 AM Age: 64 years old Clinical indication: Injury or trauma; Fall; Rib area, left side; Blunt trauma; Additional info: W19. Xxxa - unspecified fall, initial encounter TECHNIQUE: Imaging protocol: Radiologic exam of the left ribs with PA chest. Views: 3 views COMPARISON: CR XR chest 1V portable [id number] 12/15/2023 11:34 AM FINDINGS: Lungs: Unremarkable. No consolidation. Pleural spaces: Unremarkable. No pleural effusion. No pneumothorax. Heart/Mediastinum: No cardiomegaly. Mediastinal surgical clips. Left atrial appendage occlusion device. Vasculature: Aortic arch atherosclerotic calcification. Bones/joints: No discrete displaced rib fracture. Degenerative change along the spine and acromioclavicular joints. Prior median sternotomy. XR/XR ribs LT mn 3V w CXR1V [id number] IMPRESSION: No acute findings.
== END 2024-05-22 10:09 | disposition home or self-care (01) ==
LOC: RAD 10:09
PROVIDERS: PCP Nurse Practitioner Family; Visit Provider Nurse Practitioner Family
DX: R07.81 Pleurodynia (principal); W19.XXXA Unspecified fall, initial encounter; Z95.818 Presence of other cardiac implants and grafts
CPT/HCPCS: 71101

== ENCOUNTER → 2024-06-07 08:33 | Outpatient (BNVA) | payer MEDICARE, BC, OTHER, SELFPAY | PROVIDERS: PCP Nurse Practitioner Family; Visit Provider Internal Medicine Cardiovascular Disease | DX: I10 Essential (primary) hypertension (principal); Z95.1 Presence of aortocoronary bypass graft; E11.9 Type 2 diabetes mellitus without complications; Z72.0 Tobacco use; E78.5 Hyperlipidemia, unspecified; R07.9 Chest pain, unspecified; G89.29 Other chronic pain; I73.9 Peripheral vascular disease, unspecified; Z79.4 Long term (current) use of insulin | CPT/HCPCS: 99214 ==

== ENCOUNTER 2024-06-09 11:08 | Emergency (ER) | payer MEDICARE, BC, SELFPAY ==
--- NOTE | 2024-06-09 11:11 | ECG_ITS ---
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 Measurements Intervals [place] Rate: 76 P: 56 VT: 151 QRS: 30 QRSD: 110 T: 79 QT: 357 QTc: 402 Interpretive Statements SINUS RHYTHM POSSIBLE LEFT ATRIAL ENLARGEMENT [-0.1mV P-WAVE IN V1/V2] NONSPECIFIC T-WAVE ABNORMALITY Compared to ECG 03/07/2024 14:05:25 Sinus bradycardia no longer present T-wave abnormality still present Electronically Signed On 06-10-2024 14:06:46 CDT by Lon Garcia M.D. [id number]
[2024-06-09 11:23] VITALS: BP 165/87; PULSE 83; RESP 18; TEMP 36.5; O2SAT 98
--- NOTE | 2024-06-09 11:30 | XRR_ITS ---
PROCEDURE INFORMATION: Exam: XR Chest Exam date and time: 06/09/2024 11:42 AM Age: 64 years old Clinical indication: Chest pressure; Patient HX: Chest pain; SOB TECHNIQUE: Imaging protocol: Radiologic exam of the chest. Views: 1 view. COMPARISON: CR XR ribs LT mn 3V w CXR1V [id number] 05/22/2024 10:27 AM FINDINGS: Lungs: Unremarkable. No consolidation. Pleural spaces: Unremarkable. No pleural effusion. No pneumothorax. Heart/Mediastinum: Post CABG. Bones/joints: Moderate degenerative disease of the right acromioclavicular joint. Sternotomy wires. XR/XR chest 1V portable [id number] IMPRESSION: No acute cardiopulmonary process.
--- NOTE | 2024-06-09 11:31 | ED_ITS ---
HPI - Chest Pain 2 General: Chief Complaint: Chest Pain Stated Complaint: chest pain, SOB Time Seen by Provider: 06/09/24 11:23 Source: patient Mode of arrival: ambulatory Limitations: no limitations History of Present Illness: This patient made his way to the emergency department today because he continues to have chest pain symptoms. 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 He is here today because he feels like he may be getting worse but nothing specific. He states over the past weeks that he has had chest pains that come and go for 10 to 15 minutes at a time at most. They may be related to activity they may not. He states that his ability to ambulate has diminished from that prior to his coronary artery bypass which was performed in December at [facility]. He states he is never had any heart problems that he knew until he when he discovered in an angiogram in December of this year to have significant coronary artery disease. He is not a tobacco user but is a diabetic. He is uses both oral hypoglycemics as well as insulin. He denies any fevers or chills cough or other constitutional symptoms. He denies any chest pain at the time of this initial interview. He states he is never awoken with chest pain. MD complaint: chest pain Pertinent past history: coronary artery disease and CABG Prior episodes: Yes Associated symptoms: Deny abdominal pain, fever(s), nausea, palpitations, syncope or vomiting Review of Systems 2 Const: Denies: fever(s) or chills ENMT: Denies: odynophagia, nasal discharge or nasal congestion Card: Reports: chest pain; Denies: palpitations, syncope or pre-syncope Resp: Denies: productive cough or non-productive cough GI: Denies: abdominal pain, nausea, vomiting or diarrhea : Denies: flank pain, difficulty urinating, dysuria or urinary frequency Musc: Reports: extremity pain (With activity); Denies: neck pain, back pain or extremity swelling Skin/Breast: Denies: rash or pruritus Neuro: Denies: headache(s), numbness in extremities or weakness in extremities Endo: Denies: polyuria or polydipsia PFSH ED 2 PFSH: Medical History Claudication Cardiac ischemia Elevated troponin Dyslipidemia Tobacco abuse Social History Smoking and tobacco/nicotine status: former use of tobacco/nicotine Alcohol intake: never Physical Exam 2 Narrative: EXAM NARRATIVE: He appears to be alert in no acute distress he answers questions appropriately and makes good eye contact. Const: COMMON NORMALS: no acute distress and patient oriented x3 GENERAL APPEARANCE: cooperative and comfortable NUTRITIONAL APPEARANCE: overweight HENMT: COMMON NORMALS: normocephalic, Normal nasal mucous membranes and turbinates present and moist oral mucous membranes HEAD & SCALP: n ormocephalic NOSE: Normal nasal mucous membranes and turbinates present Eye: COMMON NORMALS: Equal, round and reactive pupils present, EOMs intact bilaterally and conjunctivae normal CONJUNCTIVA: Yes conjunctivae normal P UPIL: Yes Equal, round and reactive pupils present Neck/C-Spine: COMMON NORMALS: full ROM, no JVD and No carotid bruits Chest: COMMONS NORMALS: normal inspection of the chest and normal palpation of entire chest wall Resp: COMMON NORMALS: normal respiratory effort, No use of accessory muscles and clear to auscultation bilaterally AUSCULTATION: clear to auscultation bilaterally Cardio: COMMON NORMALS: no JVD, regular rate, regular rhythm, No murmurs present (Cardio) and Peripheral pulses 2+ throughout RATE: regular rate R HYTHM: regular rhythm PERIPHERAL PULSES: Peripheral pulses 2+ throughout GI: COMMON NORMALS: Soft to palpation and non-tender INSPECTION: Yes central obesity PALPATION: Yes Soft to palpation : COMMON NORMALS: Yes no CVA tenderness BLADDER/KIDNEY EXAM: Yes no CVA tenderness Back/Pelvis: COMMON NORMALS: no CVA tenderness, thoracic and lumbar spine normal to inspection and no thoracic nor lumbar tenderness Extremity: COMMON NORMALS: normal to inspection, full ROM, no calf tenderness and no pedal edema Neuro: COMMON NORMALS: patient oriented x3, moves all extremities, no focal motor deficits and no sensory deficits noted Psych: COMMON NORMALS: mental status grossly normal Skin: COMMON NORMALS: no rashes or lesions noted, no wounds and turgor normal GENERAL SKIN EXAM: no rashes or lesions noted and turgor normal Course 2 Reevaluation(s): Reevaluation #1: Initial troponin is elevated we will await a second troponin. Serial EKGs did not show any acute changes. Reevaluation #2: Second troponin is essentially unchanged. Unlikely to represent ACS given lack of significant rise in his troponin as well as a nonischemic EKGs today. He does have a BNP elevation and no history of BNP elevation recorded within our system but his cardiovascular history has not been that long in duration for him to have had prior BNP evaluation. He does not have any evidence to suggest ACS acute decompensated heart failure, or other concerning findings at this time. Discussed current findings and their limitations and implications with patient and family. He is suitable to be discharged as cardiology as planned subsequent workup this coming week to include sestamibi and other testing which will help risk stratify him. He is currently pain-free and has been pain-free since arrival. Most of his symptoms are dyspnea and therefore we will go ahead and place him on short 7-day duration of Lasix to see if that dulce some of his symptoms in addition to sublingual nitroglycerin to use on an as-needed basis. Also reviewed return precautions. Stable at this time without any evidence of ongoing emergency medical condition. Time: 15:16 Vital Signs: Vital signs: Vital Signs Temperature 97.7 F 06/09/24 11:23 Pulse Rate 83 06/09/24 13:35 Respiratory Rate 18 06/09/24 11:23 Blood Pressure 159/99 06/09/24 13:35 Pulse Oximetry 98 06/09/24 13:35 Oxygen Delivery Me thod Room Air 06/09/24 13:35 MDM - Chest Pain Medical Decision Making Patient presented as per HPI. Differential included such things such as ACS, congestive heart failure, pneumonia. He has not had cough, or other symptoms to suggest infectious etiology. His initial troponin was slightly over the URL but delta troponins was reassuring. Serial EKGs were nondynamic and did not show any evidence of acute ischemia. He remained in sinus rhythm throughout his emergency department stay. His BNP was elevated suggesting a possible CHF component. We will treat this symptomatically and await further evaluation by cardiology who has seen him on Monday and plans additional provocative testing. Medical Records I reviewed the patient's medical records. Recent visit Dr. Garcia and cardiology and plan for a sestamibi stress test and other testing for peripheral artery disease noted. Lab Data I reviewed the patient's lab results. 06/09/24 11:36 06/09/24 11:36 Radiology Impressions Chest X-Ray 06/09/24 11:30 IMPRESSION: No acute cardiopulmonary process. Laboratory Results WBC 15.89 10^3/uL (3.29-11.43) H 06/09/24 11:36 RBC 5.08 10^6/uL (3.85-5.65) 06/09/24 11:36 Hgb 15.10 g/dL (11.27-16.99) 06/09/24 11:36 Hct 45.4 % (37-53) 06/09/24 11:36 MCV 89.4 fl (82-101) 06/09/24 11:36 MCH 29.7 pg (27-33) 06/09/24 11:36 MCHC 33.3 g/dL (30-55) 06/09/24 11:36 RDW 12.7 % (12.1-15.1) 06/09/24 11:36 Plt Count 215 10^3/cmm (157-399) 06/09/24 11:36 MPV 10.6 fL (7.4-10.4) H 06/09/24 11:36 Neut % (Auto) 73.7 % 06/09/24 11:36 Lymph % (Auto) 13.9 % 06/09/24 11:36 [place] % (Auto) 11.3 % 06/09/24 11:36 Eos % (Auto) 0.3 % 06/09/24 11:36 Baso % (Auto) 0.3 % 06/09/24 11:36 Neut # (Auto) 11.72 10^3/uL (1.8-7.7) H 06/09/24 11:36 Lymph # (Auto) 2.2 10^3/uL (0.8-4.8) 06/09/24 11:36 [place] # (Auto) 1.8 10^3/uL (0.2-0.9) H 06/09/24 11:36 Eos # (Auto) 0.0 10^3/uL (0.0-0.8) 06/09/24 11:36 Baso # (Auto) 0.1 10^3/uL (0.0-0.1) 06/09/24 11:36 Nucleated RBC % (auto) 0 % 06/09/24 11:36 Nucleated RBCs # 0.0 /100WBC 06/09/24 11:36 Sodium 136 mmol/L (136-145) 06/09/24 11:36 Potassium 3.9 mmol/L (3.5-5.1) 06/09/24 11:36 Chloride 100 mmol/L (98-107) 06/09/24 11:36 Carbon Dioxide 23 mmol/L (22-29) 06/09/24 11:36 Anion Gap 16.9 (5-19) 06/09/24 11:36 BUN 13 mg/dL (8-23) 06/09/24 11:36 Creatinine 0.8 mg/dL (0.7-1.2) 06/09/24 11:36 GFR Calculation 97.0 mL/min (90-130) 06/09/24 11:36 Glucose 148 mg/dL (65-115) H 06/09/24 11:36 POC Glucose 140 mg/dL (70-110) H 06/09/24 13:35 Calculated Osmolality 285 mOsm/kg (285-295) 06/09/24 11:36 Calcium 9.3 mg/dL (8.5-10.5) 06/09/24 11:36 Total Bilirubin 1.2 mg/dL (0.15-1.2) 06/09/24 11:36 AST 12 U/L (0-40) 06/09/24 11:36 ALT 14 U/L (0-41) 06/09/24 11:36 Alkaline Phosphatase 153 U/L (40-130) H 06/09/24 11:36 Troponin T Baseline 25 ng/L (0-15) H 06/09/24 11:36 Troponin T 120 Minute 22.89 ng/L (0-15) H 06/09/24 13:29 Delta Troponin T -2.11 ABS# (0-10) L 06/09/24 13:29 NT-Pro-B Natriuret Pep 2205 pg/mL (0-125) H 06/09/24 11:36 Total Protein 7.4 g/dL (6.6-8.7) 06/09/24 11:36 Albumin 4.1 g/dL (3.5-5.2) 06/09/24 11:36 Globulin 3.3 g/dL (1.3-4.6) 06/09/24 11:36 All radiology interpretation(s) finalized by discharge EKG Data EKG 1: I personally reviewed and interpreted this EKG as follows: Interpretation: Contemporaneous review of resting EKG reveals a ventricular rate of 76 bpm. Normal CO interval, QRS duration, corrected QT interval. Normal axis. Has evidence of enlarged P wave in limb leads suggestive of possible right atrial enlargement. Nonspecific ST wave changes in precordial leads V3 4 and 5. EKG 2: I personally reviewed and interpreted this EKG as follows: Interpretation: Second EKG this ED visit reveals a ventricular rate of 71 bpm. Default computer program indicates a second-degree type II AV block however P intervals are regular and associated with QRSs throughout the resting EKG. No evidence of a second-degree block. QRS duration is normal. Corrected QTc is normal. [place] are normal. No significant ST-T wave segment changes are noted. Discharge Plan Discharge Patient Disposition: Home Clinical Impression: CHF (congestive heart failure) Qualifiers: Heart failure type: unspecified Heart failure chronicity: unspecified Qualified Code(s): I50.9 - Heart failure, unspecified CAD (coronary artery disease) Qualifiers: Coronary Disease-Associated Artery/Lesion type: unspecified vessel or lesion type [place] vs. transplanted heart: [place] heart Associated angina: unspecified whether angina present Qualified Code(s): I25.10 - Atherosclerotic heart disease of [place] coronary artery without angina pectoris Condition: Stable Prescriptions: New Lasix 20 mg tablet 20 mg PO DAILY Qty: 7 0RF nitroglycerin 0.4 mg tablet, sublingual 0.4 mg sublingual Q5M MDD 3 Qty: 60 0RF Rx Instructions: do not exceed 3 doses per episode No Action (DME) pen needle, diabetic [BD Ultra-Fine Micro Pen Needle] 32 gauge x 1/4 needle See Rx Instructions .Route Qty: 100 3RF Rx Instructions: three times a day insulin lispro [Humalog KwikPen Insulin] 100 unit/mL insulin pen See Rx Instructions .ROUTE .COMPLEX Qty: 15 1RF Rx Instructions: sliding scale: check blood sugar before meals three times a day: 0-150= 0 units 151-200=2 units 201-250=4 units 251-300=6 units 301-350= 8 units 351-400 = 10 units, greater than [address] or go to ER.; max 30 units daily metoprolol tartrate 25 mg tablet 25 mg PO BID amlodipine 10 mg tablet 10 mg PO DAILY Qty: 90 0RF metformin 1,000 mg tablet 1,000 mg PO BIDWMEAL Qty: 180 3RF insulin glargine [Lantus Solostar U-100 Insulin] 100 unit/mL (3 mL) insulin pen 40 unit SUBCUT QAM Qty: 15 0RF aspirin 81 mg tablet,delayed release (DR/EC) 81 mg PO DAILY Qty: 90 1RF atorvastatin 80 mg tablet 80 mg PO DAILY Qty: 90 1RF clopidogrel 75 mg tablet 75 mg PO DAILY Qty: 90 1RF meloxicam 15 mg tablet 15 mg PO BEDTIME Qty: 90 0RF buspirone 5 mg tablet See Rx Instructions .ROUTE .COMPLEX Qty: 180 0RF Dose Instruction: Take 1 tablet by mouth twice daily Rx Instructions: Take 1 tablet by mouth twice daily Discharge Orders: Discharge ED (Routine); Ordered 06/09/24 Ordered By: Mauricio Manriquez Referrals: Gail Canales NP [Primary Care Provider] - Discharge Diet: Low Salt Discharge Activity: Increase activity as tolerated Patient Instructions: Opioid Safety, Pain Management Activity Restrictions/Additional Instructions: As we discussed your testing in the emergency department today did not reveal any findings that suggested a heart attack however you do have some fluid retention which may suggest mild congestive heart failure. We have provided a diuretic which is a pill that will help remove some of the excess fluid in your system. You have been scheduled for additional testing by Dr. Garcia. You should hear back from hospital on Monday regarding your stress test and other testing. If you do not hear back by Monday you should call Dr. Garcia's office to inquire. If you develop any worsening symptoms or other new concerning symptoms such as sustained chest pain lasting for more than 60 minutes and not relieved by nitroglycerin, fevers chills or other concerning symptoms return to this or the nearest emergency department immediately. 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
[2024-06-09] MEDS: aspirin 81 mg Chew Tablet 324 MG PO (11:34)
[2024-06-09 11:39] VITALS: BP 173/100; PULSE 74; O2SAT 95
[2024-06-09 11:42] LABS: Basophils # 0.1 10^3/uL (0.0-0.1); Basophils % 0.3 %; Eosinophils % 0.3 %; Hematocrit 45.4 % (37-53); Lymphocytes # 2.2 10^3/uL (0.8-4.8); Lymphocytes % 13.9 %; Mean Corpuscular HGB Conc 33.3 g/dL (30-55); Mean Corpuscular Hemoglobin 29.7 pg (27-33); Mean Corpuscular Volume 89.4 fl (82-101); Mean Platelet Volume 10.6 fL (7.4-10.4); Monocytes # 1.8 10^3/uL (0.2-0.9); Monocytes % 11.3 %; Neutrophils # 11.72 10^3/uL (1.8-7.7); Neutrophils % 73.7 %; Nucleated Red Blood Cells % 0 %; Platelet Count 215 10^3/cmm (157-399); Red Blood Count 5.08 10^6/uL (3.85-5.65); Red Cell Distribution Width 12.7 % (12.1-15.1); White Blood Count 15.89 10^3/uL (3.29-11.43)
[2024-06-09 12:11] LABS: Troponin(5th) Baseline 25 ng/L (0-15)
[2024-06-09 12:18] LABS: Alanine Aminotransferase 14 U/L (0-41); Albumin Level 4.1 g/dL (3.5-5.2); Alkaline Phosphatase 153 U/L (40-130); Anion Gap 16.9 (5-19); Aspartate Amino Transferase 12 U/L (0-40); Blood Urea Nitrogen 13 mg/dL (8-23); Calcium 9.3 mg/dL (8.5-10.5); Carbon Dioxide 23 mmol/L (22-29); Chloride 100 mmol/L (98-107); Creatinine Clr Calc Pharmacy 105.9771; Globulin 3.3 g/dL (1.3-4.6); Glucose 148 mg/dL (65-115); NT Pro B Type Natriuretic Pept 2205 pg/mL (0-125); Osmolality Calculated 285 mOsm/kg (285-295); Potassium 3.9 mmol/L (3.5-5.1); Sodium 136 mmol/L (136-145); Total Bilirubin 1.2 mg/dL (0.15-1.2); Total Protein 7.4 g/dL (6.6-8.7)
--- NOTE | 2024-06-09 13:31 | ECG_ITS ---
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 Measurements Intervals [place] Rate: 71 P: 0 NC: 0 QRS: 35 QRSD: 102 T: 83 QT: 357 QTc: 390 Interpretive Statements SINUS RHYTHM NONSPECIFIC T-WAVE ABNORMALITY CRITICAL TEST RESULT Compared to ECG 06/09/2024 11:11:36 No significant changes Electronically Signed On 06-10-2024 14:12:59 CDT by Lon Garcia M.D. [email or web address]
[2024-06-09 13:35] VITALS: BP 159/99; PULSE 83; O2SAT 98
[2024-06-09 13:39] LABS: Glucose Point of Care 140 mg/dL (70-110)
[2024-06-09 13:55] LABS: Troponin 5 2HR 22.89 ng/L (0-15)
[2024-06-09 14:16] LABS: Troponin 5 2HR Delta -2.11 ABS# (0-10)
[2024-06-09 16:02] VITALS: BP 159/99; PULSE 83; RESP 18; TEMP 36.5; O2SAT 98
== END 2024-06-09 16:03 | disposition home or self-care (01) ==
PROVIDERS: Emergency Provider Emergency Medicine; PCP Nurse Practitioner Family
DX: I25.10 Atherosclerotic heart disease of native coronary artery without angina pectoris (principal); I11.0 Hypertensive heart disease with heart failure; I50.9 Heart failure, unspecified; Z79.4 Long term (current) use of insulin; Z79.84 Long term (current) use of oral hypoglycemic drugs; Z79.82 Long term (current) use of aspirin; Z79.02 Long term (current) use of antithrombotics/antiplatelets; E78.5 Hyperlipidemia, unspecified; Z87.891 Personal history of nicotine dependence
CPT/HCPCS: 36415; 36416; 71045; 80053; 82962; 83880; 84484; 85025; 93005; 99285

== ENCOUNTER 2024-06-10 13:29 | Emergency (ER) | payer BC, MEDICARE, SELFPAY ==
--- NOTE | 2024-06-10 13:33 | XRR_ITS ---
PROCEDURE INFORMATION: Exam: XR Chest Exam date and time: 06/10/2024 2:03 PM Age: 64 years old Clinical indication: Pain; Angina pectoris; Prior surgery; Surgery date: 6+ months; Surgery type: Cabg; Additional info: Cp TECHNIQUE: Imaging protocol: Radiologic exam of the chest. Views: 1 view. COMPARISON: CR (CHEST, ) 06/09/2024 11:42 AM FINDINGS: Tubes, catheters and devices: Left atrial appendage exclusion device. Lungs: Unremarkable. No consolidation. Pleural spaces: Unremarkable. No pleural effusion. No pneumothorax. Heart/Mediastinum: Unremarkable. No cardiomegaly. Bones/joints: Previous median sternotomy. XR/XR chest 1V portable [id number] IMPRESSION: No acute findings.
--- NOTE | 2024-06-10 13:41 | ECG_ITS ---
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 Measurements Intervals [place] Rate: 65 P: 53 [place]: 159 QRS: 31 QRSD: 114 T: 79 QT: 369 QTc: 386 Interpretive Statements SINUS RHYTHM POSSIBLE LEFT ATRIAL ENLARGEMENT [-0.1mV P-WAVE IN V1/V2] MODERATE INTRAVENTRICULAR CONDUCTION DELAY [110+ ms QRS DURATION] NONSPECIFIC T-WAVE ABNORMALITY Compared to ECG 06/09/2024 13:31:59 Intraventricular conduction delay now present T-wave abnormality still present Electronically Signed On 06-10-2024 14:11:39 CDT by Lon Garcia M.D. [email or web address]
[2024-06-10 13:48] VITALS: BP 155/89; PULSE 66; TEMP 37.7; O2SAT 97; BMI 36.5
[2024-06-10 14:06] VITALS: BP 162/81; PULSE 78; O2SAT 95
--- NOTE | 2024-06-10 14:29 | ED_ITS ---
HPI - Chest Pain 2 General: Chief Complaint: Chest Pain Stated Complaint: Dr. Patton sent over fluid retention around hrt Time Seen by Provider: 06/10/24 14:07 Source: patient Mode of arrival: ambulatory Limitations: no limitations History of Present Illness: 64-year-old male states over the weekend he has been having chest pain with shortness of breath patient was seen here yesterday had a slightly elevated BNP states he has been having some shortness of breath along with some chest pain states that he has inspirational chest pain states went to his PCP and she is concerned that he is gaining water weight. He denies any cough. Associated symptoms: Reports dyspnea; Deny abdominal pain, fever(s), nausea or vomiting Review of Systems 2 Const: Denies: fever(s), chills, body aches or change in appetite ENMT: Denies: throat pain or dental pain Card: Reports: chest pain Resp: Reports: dyspnea GI: Denies: abdominal pain, nausea, vomiting or diarrhea Musc: Denies: neck pain or back pain Skin/Breast: Denies: rash Neuro: Denies: headache(s) PFSH ED 2 PFSH: Medical History Claudication Cardiac ischemia Elevated troponin Dyslipidemia Tobacco abuse Social History Smoking and tobacco/nicotine status: never used tobacco/nicotine Alcohol intake: never Physical Exam 2 Const: COMMON NORMALS: no acute distress, patient oriented x3 and healthy appearing HENMT: COMMON NORMALS: normocephalic and atraumatic HEAD & SCALP: n ormocephalic and atraumatic Eye: COMMON NORMALS: conjunctivae normal CONJUNCTIVA: Yes conjunctivae normal Neck/C-Spine: COMMON NORMALS: full ROM and supple Chest: COMMONS NORMALS: normal inspection of the chest Resp: COMMON NORMALS: normal respiratory effort, No retractions, No use of accessory muscles and clear to auscultation bilaterally AUSCULTATION: clear to auscultation bilaterally Cardio: COMMON NORMALS: regular rate, regular rhythm and No murmurs present (Cardio) RATE: regular rate RHYTHM: regular rhythm Extremity: COMMON NORMALS: normal to inspection and full ROM Neuro: COMMON NORMALS: patient oriented x3, moves all extremities and no focal motor deficits Psych: COMMON NORMALS: mental status grossly normal, Normal thought process present and cooperative THOUGHT PROCESS: Normal thought process present Skin: COMMON NORMALS: no rashes or lesions noted and no wounds GENERAL SKIN EXAM: no rashes or lesions noted Course 2 Vital Signs: Vital signs: Vital Signs Temperature 99.9 F H 06/10/24 13:48 Pulse Rate 66 06/10/24 13:48 Blood Pressure 155/89 06/10/24 13:48 Pulse Oximetry 97 06/10/24 13:48 Oxygen Delivery Me thod Room Air 06/10/24 13:48 MDM - Chest Pain Medical Decision Making Patient presents here with dyspnea likely some mild CHF his imaging blood work here is normal he had no chest pain he given a dose of Lasix will prescribe him 20 mg of Lasix daily will have him follow-up with PCP return if worsening he understands agrees to plan. Medical Records I reviewed the patient's medical records. Lab Data I reviewed the patient's lab results. 06/10/24 14:19 06/10/24 14:19 Radiology Impressions Chest X-Ray 06/10/24 13:33 IMPRESSION: No acute findings. Chest CTA 06/10/24 14:56 IMPRESSION: No acute findings. Laboratory Results WBC 15.56 10^3/uL (3.29-11.43) H 06/10/24 14:19 RBC 4.77 10^6/uL (3.85-5.65) 06/10/24 14:19 Hgb 14.10 g/dL (11.27-16.99) 06/10/24 14:19 Hct 42.5 % (37-53) 06/10/24 14:19 MCV 89.1 fl (82-101) 06/10/24 14:19 MCH 29.6 pg (27-33) 06/10/24 14:19 MCHC 33.2 g/dL (30-55) 06/10/24 14:19 RDW 12.7 % (12.1-15.1) 06/10/24 14:19 Plt Count 227 10^3/cmm (157-399) 06/10/24 14:19 MPV 10.9 fL (7.4-10.4) H 06/10/24 14:19 Neut % (Auto) 74.4 % 06/10/24 14:19 Lymph % (Auto) 13.6 % 06/10/24 14:19 [place] % (Auto) 10.7 % 06/10/24 14:19 Eos % (Auto) 0.4 % 06/10/24 14:19 Baso % (Auto) 0.3 % 06/10/24 14:19 Neut # (Auto) 11.58 10^3/uL (1.8-7.7) H 06/10/24 14:19 Lymph # (Auto) 2.1 10^3/uL (0.8-4.8) 06/10/24 14:19 [place] # (Auto) 1.7 10^3/uL (0.2-0.9) H 06/10/24 14:19 Eos # (Auto) 0.1 10^3/uL (0.0-0.8) 06/10/24 14:19 Baso # (Auto) 0.0 10^3/uL (0.0-0.1) 06/10/24 14:19 Nucleated RBC % (auto) 0 % 06/10/24 14:19 Nucleated RBCs # 0.0 /100WBC 06/10/24 14:19 PT 13.20 SECONDS (12.1-14.9) 06/10/24 14:19 INR 0.97 (0.8-1.2) 06/10/24 14:19 D-Dimer 0.98 ug/mLFEU (0-0.59) H 06/10/24 14:19 Sodium 132 mmol/L (136-145) L 06/10/24 14:19 Potassium 4.7 mmol/L (3.5-5.1) 06/10/24 14:19 Chloride 96 mmol/L (98-107) L 06/10/24 14:19 Carbon Dioxide 23 mmol/L (22-29) 06/10/24 14:19 Anion Gap 17.7 (5-19) 06/10/24 14:19 BUN 13 mg/dL (8-23) 06/10/24 14:19 Creatinine 0.9 mg/dL (0.7-1.2) 06/10/24 14:19 GFR Calculation 84.7 mL/min (90-130) L 06/10/24 14:19 Glucose 169 mg/dL (65-115) H 06/10/24 14:19 Calculated Osmolality 278 mOsm/kg (285-295) L 06/10/24 14:19 Calcium 9.3 mg/dL (8.5-10.5) 06/10/24 14:19 Total Bilirubin 0.9 mg/dL (0.15-1.2) 06/10/24 14:19 AST 20 U/L (0-40) 06/10/24 14:19 ALT 23 U/L (0-41) 06/10/24 14:19 Alkaline Phosphatase 217 U/L (40-130) H 06/10/24 14:19 Troponin T Baseline 22 ng/L (0-15) H 06/10/24 14:19 Troponin T 120 Minute 24.73 ng/L (0-15) H 06/10/24 16:32 Delta Troponin T 2.73 ABS# (0-10) 06/10/24 16:32 NT-Pro-B Natriuret Pep 1479 pg/mL (0-125) H 06/10/24 14:19 Total Protein 7.0 g/dL (6.6-8.7) 06/10/24 14:19 Albumin 4.2 g/dL (3.5-5.2) 06/10/24 14:19 Globulin 2.8 g/dL (1.3-4.6) 06/10/24 14:19 SARS-CoV-2 Ag (Rapid) negative (Negative) 06/10/24 14:25 All radiology interpretation(s) finalized by discharge EKG Data EKG 1: I personally reviewed and interpreted this EKG as follows: EKG interpretation date: 06/10/24 EKG interpretation time: 15:29 Interpretation: nsr hr [address] or t wave abnormalities qrs 110 qtc 393 Discharge Plan Discharge Patient Disposition: Home Clinical Impression: Dyspnea Condition: Stable Prescriptions: New Lasix 20 mg tablet 20 mg PO DAILY Qty: 30 0RF No Action (DME) pen needle, diabetic [BD Ultra-Fine Micro Pen Needle] 32 gauge x 1/4 needle See Rx Instructions .Route Qty: 100 3RF Rx Instructions: three times a day insulin lispro [Humalog KwikPen Insulin] 100 unit/mL insulin pen See Rx Instructions .ROUTE .COMPLEX Qty: 15 1RF Rx Instructions: sliding scale: check blood sugar before meals three times a day: 0-150= 0 units 151-200=2 units 201-250=4 units 251-300=6 units 301-350= 8 units 351-400 = 10 units, greater than [address] or go to ER.; max 30 units daily metoprolol tartrate 25 mg tablet 25 mg PO BID metformin 1,000 mg tablet 1,000 mg PO BIDWMEAL Qty: 180 3RF insulin glargine [Lantus Solostar U-100 Insulin] 100 unit/mL (3 mL) insulin pen 40 unit SUBCUT QAM Qty: 15 0RF clopidogrel 75 mg tablet 75 mg PO DAILY Qty: 90 1RF meloxicam 15 mg tablet 15 mg PO BEDTIME Qty: 90 0RF furosemide [Lasix] 20 mg tablet 20 mg PO DAILY Qty: 7 0RF nitroglycerin 0.4 mg tablet, sublingual 0.4 mg sublingual Q5M MDD 3 Qty: 60 0RF Rx Instructions: do not exceed 3 doses per episode buspirone 5 mg tablet 5 mg PO BID atorvastatin 80 mg tablet 80 mg PO QPM aspirin 81 mg tablet,delayed release (DR/EC) 81 mg PO QAM amlodipine 10 mg tablet 10 mg PO QPM Discharge Orders: Discharge ED (Routine); Ordered 06/10/24 Ordered By: Denise Jacobson Referrals: Gail Canales NP [Primary Care Provider] - 1-3 days Discharge Diet: Advance as tolerated Discharge Activity: Resume usual activity Patient Instructions: Dyspnea (ED) Coding Level of Care Code ED Latex Foam Worker for Nancy Lovett
[2024-06-10 14:33] LABS: Basophils % 0.3 %; Eosinophils # 0.1 10^3/uL (0.0-0.8); Eosinophils % 0.4 %; Hematocrit 42.5 % (37-53); Lymphocytes # 2.1 10^3/uL (0.8-4.8); Lymphocytes % 13.6 %; Mean Corpuscular HGB Conc 33.2 g/dL (30-55); Mean Corpuscular Hemoglobin 29.6 pg (27-33); Mean Corpuscular Volume 89.1 fl (82-101); Mean Platelet Volume 10.9 fL (7.4-10.4); Monocytes # 1.7 10^3/uL (0.2-0.9); Monocytes % 10.7 %; Neutrophils # 11.58 10^3/uL (1.8-7.7); Neutrophils % 74.4 %; Nucleated Red Blood Cells % 0 %; Platelet Count 227 10^3/cmm (157-399); Red Blood Count 4.77 10^6/uL (3.85-5.65); Red Cell Distribution Width 12.7 % (12.1-15.1); White Blood Count 15.56 10^3/uL (3.29-11.43)
[2024-06-10 14:36] VITALS: BP 114/81; PULSE 76; O2SAT 95
[2024-06-10] MEDS: acetaminophen 325 mg Tablet 650 MG PO (14:42)
[2024-06-10 14:48] LABS: INR 0.97 (0.8-1.2)
[2024-06-10 14:51] LABS: D Dimer 0.98 ug/mLFEU (0-0.59)
[2024-06-10 14:55] LABS: Troponin(5th) Baseline 22 ng/L (0-15)
--- NOTE | 2024-06-10 14:56 | CTR_ITS ---
PROCEDURE INFORMATION: Exam: CTA Chest With Contrast Exam date and time: 06/10/2024 3:49 PM Age: 64 years old Clinical indication: Shortness of breath; Prior surgery; Surgery date: 6+ months; Surgery type: Cabg; Additional info: SOB TECHNIQUE: Imaging protocol: Computed tomographic angiography of the chest with contrast. Exam focused on the arteries. 3D rendering (Not supervised by radiologist): MIP and/or 3D reconstructed images were created by the technologist. Radiation optimization: All CT scans at this facility use at least one of these dose optimization techniques: automated exposure control; mA and/or kV adjustment per patient size (includes targeted exams where dose is matched to clinical indication); or iterative reconstruction. Contrast material: OMNI 350; Contrast volume: 100 ml; Contrast route: INTRAVENOUS (IV); COMPARISON: CR XR chest 1V portable [id number] 06/10/2024 2:03 PM RADIATION DOSE METRICS: Total DLP (mGy-cm): 495 FINDINGS: Tubes, catheters and devices: Previous left atrial appendage exclusion device. Pulmonary arteries: Normal. No pulmonary emboli. Aorta: Unremarkable. No aortic aneurysm. No aortic dissection. Lungs: Unremarkable. No consolidation. No masses. Pleural spaces: Unremarkable. No pneumothorax. No pleural effusion. Heart: Unremarkable. No cardiomegaly. No pericardial effusion. Coronary arteries: Coronary artery calcifications. Lymph nodes: Unremarkable. No enlarged lymph nodes. Bones/joints: Previous median sternotomy. Diffuse degenerative disc disease in the thoracic spine. Soft tissues: Unremarkable. CT/CT angio chest PE prot [id number] IMPRESSION: No acute findings.
[2024-06-10 15:06] VITALS: BP 123/57; PULSE 59; O2SAT 95
[2024-06-10 15:08] LABS: SARS Covid-2 Antigen negative (Negative)
[2024-06-10 15:10] LABS: Alanine Aminotransferase 23 U/L (0-41); Albumin Level 4.2 g/dL (3.5-5.2); Alkaline Phosphatase 217 U/L (40-130); Anion Gap 17.7 (5-19); Aspartate Amino Transferase 20 U/L (0-40); Blood Urea Nitrogen 13 mg/dL (8-23); Calcium 9.3 mg/dL (8.5-10.5); Carbon Dioxide 23 mmol/L (22-29); Chloride 96 mmol/L (98-107); Creatinine Clr Calc Pharmacy 94.8319; Globulin 2.8 g/dL (1.3-4.6); Glomerular Filtration Rate 84.7 mL/min (90-130); Glucose 169 mg/dL (65-115); NT Pro B Type Natriuretic Pept 1479 pg/mL (0-125); Osmolality Calculated 278 mOsm/kg (285-295); Potassium 4.7 mmol/L (3.5-5.1); Sodium 132 mmol/L (136-145); Total Bilirubin 0.9 mg/dL (0.15-1.2)
--- NOTE | 2024-06-10 15:33 | ECG_ITS ---
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 Measurements Intervals [place] Rate: 65 P: 55 ND: 154 QRS: 31 QRSD: 110 T: 82 QT: 382 QTc: 397 Interpretive Statements SINUS RHYTHM POSSIBLE LEFT ATRIAL ENLARGEMENT [-0.1mV P-WAVE IN V1/V2] POSSIBLE LATERAL MYOCARDIAL INFARCTION , OF INDETERMINATE AGE [30 ms Q WAVE IN I/aVL/V5/V6] Compared to ECG 06/10/2024 13:41:25 Myocardial infarct finding now present Intraventricular conduction delay no longer present T-wave abnormality no longer present Electronically Signed On 06-11-2024 7:54:04 CDT by Bernabe Acosta M.D. [id number]
[2024-06-10 15:36] VITALS: PULSE 76; O2SAT 94
[2024-06-10] MEDS: iohexol 350 mg/mL 500 mL Btl (per mL) IV (15:52)
[2024-06-10 17:00] VITALS: BP 126/61; PULSE 72; O2SAT 95
[2024-06-10 17:02] LABS: Troponin 5 2HR 24.73 ng/L (0-15); Troponin 5 2HR Delta 2.73 ABS# (0-10)
[2024-06-10] MEDS: FUROsemide 10 mg/mL SDV 2mL 20 MG IVP (17:03)
== END 2024-06-10 17:32 | disposition home or self-care (01) ==
PROVIDERS: Emergency Provider Emergency Medicine; PCP Nurse Practitioner Family
DX: R06.00 Dyspnea, unspecified (principal); I10 Essential (primary) hypertension; Z95.1 Presence of aortocoronary bypass graft
CPT/HCPCS: 36415; 71045; 71275; 80053; 83880; 84484; 85025; 85378; 85610; 87426; 93005; 96374; 99285; J1940; Q9967

== ENCOUNTER 2024-06-11 07:24 | Outpatient (CLI) | payer BC, MEDICARE, SELFPAY ==
--- NOTE | 2024-06-11 07:45 | USR_ITS ---
PROCEDURE INFORMATION: Exam: US Duplex Bilateral Lower Extremity Arteries Exam date and time: 06/11/2024 7:36 AM Age: 64 years old Clinical indication: Pain; Leg, lower; Bilateral; Additional info: Claudication TECHNIQUE: Imaging protocol: Real-time ultrasound scan of the arteries of the bilateral lower extremities with 2-D dawson scale, color Doppler flow and spectral waveform analysis. Images documented and saved. COMPARISON: CT abdomen pelvis w con* [id number] 09/13/2021 4:10 PM FINDINGS: Right common femoral artery: No occlusion or significant stenosis. Normal waveform. Right superficial femoral artery: No occlusion or significant stenosis. Normal waveform. Right popliteal artery: No occlusion or significant stenosis. Normal waveform. Right calf/foot arteries: No occlusion or significant stenosis in the visualized arteries. Normal waveforms. Dorsalis pedis artery is patent. Left common femoral artery: No occlusion or significant stenosis. Normal waveform. Left superficial femoral artery: No occlusion or significant stenosis. Normal waveform. Left popliteal artery: No occlusion or significant stenosis. Normal waveform. Left calf/foot arteries: No occlusion or significant stenosis in the visualized arteries. Normal waveforms. Dorsalis pedis artery is patent. US/[place] [id number] IMPRESSION: No stenosis or occlusion.
== END 2024-06-11 07:25 | disposition home or self-care (01) ==
LOC: RAD 07:24
PROVIDERS: PCP Nurse Practitioner Family; Visit Provider Internal Medicine Cardiovascular Disease
DX: E11.9 Type 2 diabetes mellitus without complications (principal)
CPT/HCPCS: 93925

== ENCOUNTER → 2024-06-12 13:00 | Outpatient (BNVA) | payer BC, MEDICARE, SELFPAY | PROVIDERS: PCP Nurse Practitioner Family; Visit Provider Nurse Practitioner Family | DX: R11.0 Nausea (principal); R69 Illness, unspecified; R53.83 Other fatigue | CPT/HCPCS: 86160; 86618; 86666; 86668; 86757 ==

== ENCOUNTER → 2024-08-05 15:03 | Outpatient (BNVA) | payer BC, MEDICARE, SELFPAY | PROVIDERS: PCP Nurse Practitioner Family; Visit Provider Nurse Practitioner Family | DX: E11.9 Type 2 diabetes mellitus without complications (principal) | CPT/HCPCS: 83036 ==

== ENCOUNTER → 2024-09-11 09:30 | Outpatient (BNVA) | payer BC, MEDICARE, SELFPAY | PROVIDERS: PCP Nurse Practitioner Family; Visit Provider Nurse Practitioner Family | DX: I25.119 Atherosclerotic heart disease of native coronary artery with unspecified angina pectoris (principal) | CPT/HCPCS: 80048; 85025 ==

== ENCOUNTER → 2024-10-17 13:24 | Outpatient (BNVA) | payer BC, MEDICARE, SELFPAY | PROVIDERS: PCP Nurse Practitioner Family; Visit Provider Internal Medicine | DX: R53.83 Other fatigue; Z95.1 Presence of aortocoronary bypass graft; I21.4 Non-ST elevation (NSTEMI) myocardial infarction; I10 Essential (primary) hypertension; E11.9 Type 2 diabetes mellitus without complications; R79.89 Other specified abnormal findings of blood chemistry | CPT/HCPCS: 36415; 80053; 83880; 85025 ==

== ENCOUNTER 2024-11-19 08:13 | Outpatient (CLI) | payer BC, MEDICARE, SELFPAY ==
--- NOTE | 2024-11-19 | ECG_ITS ---
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 The perfusion scan will be documented separately. DATA: Baseline heart rate was 61 beats per minute. Baseline blood pressure was 148/89 millimeters of mercury. Target heart rate was 155. Maximum heart rate achieved was 110. which was 70 % of the predicted target heart rate. Maximum blood pressure was 181/105 millimeters of mercury. The reason for ending the test was completion of the protocol. The patient did not experience any symptoms. ELECTROCARDIOGRAM: BASELINE: Sinus rhythm. Normal axis. Interventricular conduction delay, otherwise, no ST-T changes suggestive of ischemia noted. No arrhythmia noted. EXERCISE: After Lexiscan injection, no ST-T changes suggestive of ischemic noted. No arrhythmia noted. CONCLUSION: Please note due to baseline abnormality of the EKG specificity and sensitivity of the EKG portion of LexiScan MIBI stress test will be low 1. EKG not suggestive of ischemia 2. Lexiscan injection unremarkable. 3. Perfusion scan will be documented separately Electronically Signed On 12-09-2024 21:54:11 BRICK OFF BEARER by CRISTAL CHAND [id number]
--- NOTE | 2024-11-19 08:38 | NMCV_ITS ---
NM gomez perf SPECT r/s* [id number] Minesh Mon Age: 64 Gender: M : 1960 Exam Date: 11/19/2024 09:30 Ordering Phys: Bernabe Acosta M.D ([email or web address]) Technologist: GEORGE Lehman Exam Location: [facility] Indications: cp STRESS TEST Please see separate stress test report in [facility] for full findings IMAGE PROTOCOL Rest/Stress 1 Lexiscan Day Radiopharmaceutical Dose (mCi) Administration Site Administered by Rest: Tc-99m 10.8 IV GEORGE Lehman Sestamibi Stress:Tc-99m 33 IV Vanessa Chinchilla CHANGE CONTROL ANALYST Sestamibi Rest: 19-Nov-2024 90 Discovery 630 Stress: 19-Nov-2024 30 Discovery 630 0.4mg Lexiscan. Images obtained in supine and prone position. SPECT RESULTS Technical Quality: Good Raw Data Analysis: Normal Image Corrections: No attenuation or motion correction applied Summed Stress Score: 22 Summed Rest Score: 0 Summed Difference Score: 22 PERFUSION FINDINGS Large area of severe reversibility noted in basal to distal anterolateral basal to distal lateral wall suggestive of severe ischemia in LAD and circumflex territory. Medium sized area of fixed perfusion defect noted in basal to mid inferior wall suggestive of old myocardial infarction. FUNCTIONAL RESULTS (calculated via Gated SPECT) Stress Image LV EF (%): 52 Stress EDV (mL):117 TID: 1.27 Stress ESV (mL):56 FUNCTIONAL FINDINGS: There appeared to be anterolateral and lateral wall severe hypokinesis,TID ratio is elevated which could be secondary to multivessel coronary artery disease left ventricle hypertrophy and subendocardial ischemia is another probability IMPRESSIONS Large area of severe ischemia noted in basal to distal anterolateral and basal to distal lateral wall suggestive of ischemia in LAD and circumflex territory. There appeared to be old myocardial infarction versus scarring noted in basal to mid inferior wall. Multivessel coronary artery disease is a possibility. This study is abnormal. Vero Alba MD (Electronically Signed) Final Date: 19 November 2024 23:28 S
[2024-11-19] MEDS: regadenoson 0.4 Mg/5 ml Syringe IVP (10:35)
[2024-11-19 12:06] VITALS: BP 145/84; PULSE 72
--- NOTE | 2024-11-19 12:30 | USCV_ITS ---
Elieser Minesh Age: 64 Gender: M : 1960 Exam Date: 11/19/2024 11:56 Ordering Phys: Bernabe Acosta M.D ([email or web address]) Technologist: Exam Location: [facility] [place] Indication: chest pain BP: 130 / 80 HR: 72 Rhythm: Sinus Technical Quality: Adequate MEASUREMENTS (Male / Female) Normal Values 2D ECHO LV Diastolic Diameter PLAX 5.2 cm 4.2 - 5.9 / 3.9 - 5.3 cm IVS Diastolic Thickness 1.4 cm 0.6 - 1.0 / 0.6 - 0.9 cm IVS Systolic Thickness 1.8 cm LVPW Diastolic Thickness 1.5 cm 0.6 - 1.0 / 0.6 - 0.9 cm LVPW Systolic Thickness 1.9 cm LVOT Diameter 2.1 cm LV Ejection Fraction 2D Teich 63.3 % LV Ejection Fraction MOD 4C 62.7 % LV Ejection Fraction MOD 2C 54.9 % LV Ejection Fraction 2C AL 57.9 % LA Diameter 3.4 cm M-MODE LA Ao Ratio MM 1.4 AV Cusp Separation MM 1.6 cm DOPPLER AV Peak Velocity 170.8 cm/s LVOT Peak Velocity 75.0 cm/s AV Area Cont Eq vti 1.9 cm squared AV Area Cont Eq pk 1.5 cm squared MV Area PHT 2.7 cm squared Mitral E to A Ratio 0.8 TV Peak E Velocity 69.0 cm/s PV Peak Velocity 93.5 cm/s FINDINGS Left Ventricle Technically limited quality echocardiogram because of poor ultrasonic windows. LV systolic function is normal with EF 55 to 60%. Septal motion is consistent with prior surgery. Grade 1 diastolic dysfunction. Right Ventricle Normal in size and function Right Atrium Normal in size Left Atrium Normal in size Mitral Valve Structurally normal mitral valve. Aortic Valve Aortic valve is thickened. No significant stenosis. Tricuspid Valve Insufficient TR jet to calculate RVSP Pulmonic Valve Mild pulmonic regurgitation. Pericardium Grossly normal Aorta Not well visualized IVC Not visualized CONCLUSIONS Technically limited quality echocardiogram because of poor ultrasonic windows. LV systolic function is normal with EF of 55 to 60%. Grade 1 diastolic dysfunction. Mild pulmonic regurgitation. Bernabe Acosta MD (Electronically Signed) Final Date: 26 November 2024 09:15 S
== END 2024-11-19 08:14 | disposition home or self-care (01) ==
LOC: CDL 08:14
PROVIDERS: PCP Nurse Practitioner Family; Visit Provider Internal Medicine
DX: R07.9 Chest pain, unspecified (principal); R93.1 Abnormal findings on diagnostic imaging of heart and coronary circulation; I35.8 Other nonrheumatic aortic valve disorders; I37.1 Nonrheumatic pulmonary valve insufficiency; I99.8 Other disorder of circulatory system; R93.5 Abnormal findings on diagnostic imaging of other abdominal regions, including retroperitoneum
CPT/HCPCS: 36415; 78452; 93017; 93306; 96374; A9500; J2785

== ENCOUNTER 2024-11-26 09:11 | Outpatient (CLI) | payer BC, MEDICARE, SELFPAY ==
[2024-11-26] VITALS (20 sets, daily range): BP systolic 120–172; BP diastolic 61–99; PULSE 67–91; RESP 16–25; TEMP 36.5–37.1; O2SAT 91–97; BMI 35.9
[2024-11-26] MEDS: aspirin 325 mg Tablet PO (09:21)
[2024-11-26] MEDS: diphenhydrAMINE 50 mg Capsule PO (09:21)
[2024-11-26 09:37] LABS: Basophils # 0.1 10^3/uL (0.0-0.1); Basophils % 0.5 %; Eosinophils # 0.2 10^3/uL (0.0-0.8); Eosinophils % 2.2 %; Hematocrit 50.2 % (37-53); Lymphocytes # 2.1 10^3/uL (0.8-4.8); Lymphocytes % 22.5 %; Mean Corpuscular HGB Conc 31.9 g/dL (30-55); Mean Corpuscular Hemoglobin 27.5 pg (27-33); Mean Corpuscular Volume 86.3 fl (82-101); Mean Platelet Volume 10.9 fL (7.4-10.4); Monocytes # 0.8 10^3/uL (0.2-0.9); Monocytes % 8.4 %; Neutrophils # 6.16 10^3/uL (1.8-7.7); Neutrophils % 65.7 %; Nucleated Red Blood Cells % 0 %; Platelet Count 235 10^3/cmm (157-399); Red Blood Count 5.82 10^6/uL (3.85-5.65); Red Cell Distribution Width 14.5 % (12.1-15.1); White Blood Count 9.39 10^3/uL (3.29-11.43)
[2024-11-26 09:53] LABS: Anion Gap 15.2 (5-19); Blood Urea Nitrogen 23 mg/dL (8-23); Calcium 10.2 mg/dL (8.5-10.5); Carbon Dioxide 28 mmol/L (22-29); Chloride 100 mmol/L (98-107); Glucose 171 mg/dL (65-115); Osmolality Calculated 296 mOsm/kg (285-295); Potassium 4.2 mmol/L (3.5-5.1); Sodium 139 mmol/L (136-145)
--- NOTE | 2024-11-26 10:00 | P.HP_ITS ---
Same Day Surgery H&P Indication for Procedure/HPI DATE OF PROCEDURE: November 26, 2024 CHIEF COMPLAINT/INDICATIONFOR SURGICAL PROCEDURE: Worsening angina/ Abnormal stress test PREOP DIAGNOSIS: Worsening angina/ Abnormal stress test PLANNED PROCEDURE: Operation Date: 11/26/24 10:00 Proposed Procedures p Cardiac Catheterization(Left) - Bernabe Acosta M.D Possible percutaneous coronary intervention 64-year-old male with past medical history of coronary artery disease who had CABG performed last year with HODGE to LAD, SVG to OM and RCA. 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 Had redo surgery at [place]. Patient had PCI with multiple stents at [place] is SVG to OM and RCA were occluded. Had PCI of RCA and left main into OM. Since his last PCI, he has been feeling low energy, worsening shortness of breath and chest discomfort episodes. He had stress test that is abnormal. Plan for coronary angiogram with possible PCI. Medications/Allergies* Home Medications Medication Instructions Recorded Confirmed Type aspirin 81 mg tablet,delayed 81 mg PO QAM 06/10/24 11/26/24 History release acetaminophen 500 mg capsule 500 mg PO Q6H PRN Pain 07/24/24 11/26/24 History lidocaine 4 % topical patch 1 patch topical DAILY PRN Pain 07/24/24 11/26/24 History (Aspercreme (lidocaine)) methocarbamol 500 mg tablet 500 mg PO TID 07/24/24 11/26/24 History polyethylene glycol 3350 17 17 g PO DAILY 07/24/24 11/26/24 History gram/dose oral powder insulin aspart U-100 100 unit/mL See Rx Instructions SUBCUT TID 08/05/24 11/26/24 History subcutaneous cartridge (Novolog PenFill U-100 Insulin aspart) oxycodone 5 mg capsule 5 mg PO BID PRN Pain 08/21/24 11/26/24 History potassium chloride 20 mEq 20 meq PO BID 08/21/24 11/26/24 History tablet,extended release sennosides 8.6 mg capsule (senna) 8.6 mg PO DAILY 10/17/24 11/26/24 History spironolactone 25 mg tablet 25 mg PO DAILY 10/17/24 11/26/24 History Allergies/Adverse Reactions Allergy/AdvReac Type Severity Reaction Status Date / Time Penicillins Allergy Severe ALGY-Anaphy Verified 11/26/24 09:48 laxis Current Medications: Generic Name Dose Route Start Last Admin Trade Name Hosea PRN Reason Stop Dose Admin Sodium Chloride 1,000 mls @ 50 mls/hr 11/26/24 09:00 11/26/24 09:22 Sodium Chloride 0.9% IV 11/27/24 04:59 Not Given .Q20H ONE Pertinent History/Comorbid Conditions* Medical History (Updated 06/26/24 @ 14:03 by Gail Canales NP) Claudication Cardiac ischemia Elevated troponin Dyslipidemia Tobacco abuse Social History Smoking and tobacco/nicotine status: former use of tobacco/nicotine Alcohol intake: never Pertinent Exam Findings alert, oriented x 3, clear to auscultation bilaterally and regular rate & rhythm Conscious Sedation Assessment PATIENT ASSESSED PRIOR TO SEDATION, WITH NO CHANGE NOTED: Yes AIRWAY EVAL/ANESTHESIA PLAN: normal airway, ASA III, Local Anesthesia, Risks, benefits & alternatives of sedation and/or procedure discussed and Patient agrees to continue as planned ADDITIONAL INFORMATION: Moderate sedation Recommendations Surgery/Procedure today (Left heart cath with possible percutaneous coronary intervention) Coding Level of Care Code Acute Code for Nancy Lovett
--- NOTE | 2024-11-26 11:35 | PM.PROC ---
Procedure Note: Date of procedure: 11/26/24 Pre-procedure diagnosis: Worsening angina/abnormal stress test Post-procedure diagnosis: other (Severe proximal admitted to ramus artery stenosis status post successful revascularization with 2 stents.) Procedure: Left main artery has mild to moderate stenosis. IVUS was performed that showed nonsignificant MLA. Ramus artery has severe proximal and mid artery stenosis status post successful revascularization with 2 stents. RCA has patent prior stent. HODGE to LAD is patent. SVG grafts were not injected as are known occluded. Dual antiplatelet therapy with aspirin and Plavix. High intensity statin therapy Coding Level of Care Code Acute Code for Chg Fwd
--- NOTE | 2024-11-26 11:40 | SUR.EXTENDED ---
Received the patient back from the electroplating laborer via bed s/p PCI of the Ramus. Patient drowsy but awakens easily to voice. A & 0 x 3. modeling agency manager placed and vital signs obtained. Right Femoral access site with intact 6 fr sheath. To pressure bag. Dressing dry and intact. No bleeding or hematoma noted. Palpable PT pulses and doppled DP pulses. No other assessment changes noted from pre cath assessment. No concerns voiced at this time. Will transfer to CSU bed when available.
--- NOTE | 2024-11-26 13:50 | SUR.EXTENDED ---
Patient transferred via bed with all belongings to room 101. Report was called to CRISTOBAL Wisdom.
--- NOTE | 2024-11-26 14:15 | PC.NURSE ---
Patient transferred to CSU from laboratory associate with a right groin sheath, connected to a pressure bag at 1345.
[2024-11-26] MEDS: sodium chloride 0.9% 1,000 ML 100 ML IV ×2 (15:24→21:34)
[2024-11-26 16:49] LABS: Glucose Point of Care 200 mg/dL (70-110)
[2024-11-26 17:11] LABS: Partial Thromboplastin Time 50.3 SECONDS (23.9-36.7)
[2024-11-26] MEDS: insulin lispro 100 unit/1 mL SUBCUT (17:39)
[2024-11-26] MEDS: atorvastatin 40 mg Tablet 80 MG PO (17:39)
[2024-11-26] MEDS: acetaminophen 325 mg Tablet 650 MG PO (17:39)
[2024-11-26 18:46] LABS: Partial Thromboplastin Time 43.8 SECONDS (23.9-36.7)
--- NOTE | 2024-11-26 20:45 | PC.NURSE ---
Sheath pull The sheath was pulled at 1858, homeostasis obtain immediately, manual pressure held for 20 minutes, no hematoma formation noted, site is clean with dressing applied
[2024-11-26 20:55] LABS: Glucose Point of Care 120 mg/dL (70-110)
[2024-11-27 00:12] VITALS: BP 125/70; PULSE 76; RESP 18; TEMP 36.6; O2SAT 94
[2024-11-27 04:28] VITALS: BP 135/64; PULSE 70; RESP 12; TEMP 36.5; O2SAT 98
[2024-11-27 05:01] LABS: Basophils % 0.3 %; Eosinophils # 0.2 10^3/uL (0.0-0.8); Eosinophils % 2.5 %; Hematocrit 46.9 % (37-53); Lymphocytes # 1.6 10^3/uL (0.8-4.8); Lymphocytes % 18.7 %; Mean Corpuscular HGB Conc 31.8 g/dL (30-55); Mean Corpuscular Hemoglobin 27.5 pg (27-33); Mean Corpuscular Volume 86.7 fl (82-101); Mean Platelet Volume 11.5 fL (7.4-10.4); Monocytes # 0.8 10^3/uL (0.2-0.9); Monocytes % 9.2 %; Nucleated Red Blood Cells % 0 %; Platelet Count 203 10^3/cmm (157-399); Red Blood Count 5.41 10^6/uL (3.85-5.65); Red Cell Distribution Width 14.5 % (12.1-15.1); White Blood Count 8.71 10^3/uL (3.29-11.43)
[2024-11-27] MEDS: aspirin 81 mg EC Tablet PO (05:09)
[2024-11-27 05:32] LABS: Anion Gap 14.9 (5-19); Blood Urea Nitrogen 15 mg/dL (8-23); Calcium 9.4 mg/dL (8.5-10.5); Carbon Dioxide 23 mmol/L (22-29); Chloride 103 mmol/L (98-107); Creatinine Clr Calc Pharmacy 105.7411; Glucose 144 mg/dL (65-115); Osmolality Calculated 287 mOsm/kg (285-295); Potassium 3.9 mmol/L (3.5-5.1); Sodium 137 mmol/L (136-145)
[2024-11-27 05:51] VITALS: PULSE 62
[2024-11-27 06:37] LABS: Glucose Point of Care 115 mg/dL (70-110)
[2024-11-27 07:39] VITALS: BP 157/77; PULSE 60; RESP 14; TEMP 36.6; O2SAT 94
--- NOTE | 2024-11-27 09:22 | P.DS_ITS ---
<Statement entered by Bernabe Acosta M.D - 11/27/24 22:43> Patient was evaluated and cared for in conjunction with an advanced practice practitioner. I personally examined the patient and reviewed the chart and all pertinent data including imaging, telemetry, and laboratory results. I discussed the patient in detail with the advanced practice practitioner. Please see their note for discharge summary, results and agreed upon plan of care for the patient. Patient feeling well. No chest pain. No access site complications GENERAL: Patient is alert and oriented HEART: Regular S1 and S2 LUNGS: Clear to auscultation bilaterally EXTREMITIES: Lower extremities with no edema Discharge Providers Date of Admission: 11/26/2024 Date of Discharge: November 27, 2024 Attending Provider at Admission: Dr Acosta Attending Provider at Discharge: Bernabe Acosta M.D Primary Care Provider: Gail Canales NP Reason for Visit Reason for Visit: R94.39 Brief History: 64-year-old male with past medical histo ry of coronary artery disease who had CABG performed last year with HODGE to LAD, SVG to OM and RCA. 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 Had redo surgery at [facility]. Patient had PCI with multiple stents at [facility] is SVG to OM and RCA were occluded. Had PCI of RCA and left main into OM. Since his last PCI, he has been feeling low energy, worsening shortness of breath and chest discomfort episodes. He had stress test that is abnormal. Plan for coronary angiogram with possible PCI. Hospital Course Hospital Course He underwent coronary angiogram yesterday, finding mild to moderate stenosis of the left main not hemodynamically significant by IVUS. The ramus artery contained severe proximal to mid stenosis treated with CHAY x 2. Previously placed RCA stent patent and HODGE to LAD bypass graft patent. Other SVG grafts known to be occluded, not injected. No chest pain post procedure or overnight. He will be discharged home today on aspirin and Plavix, atorvastatin 80 mg daily, furosemide 40 mg daily, metoprolol succinate 25 mg daily, spironolactone 25 mg daily. No hematoma at the right femoral cath site. Uncomplicated recovery overnight. He is feeling well and ready to go home. 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 Physical Exam Const: COMMON NORMALS: no acute distress and patient oriented x3 GENERAL APPEARANCE: cooperative ORIENTATION/CONSCIOUSNESS: Yes awake, Yes oriented to person, Yes oriented to place and Yes oriented to time Chest: COMMONS NORMALS: normal inspection of the chest and normal palpation of entire chest wall CHEST: Yes Symmetrical chest wall rise Resp: COMMON NORMALS: normal respiratory effort, No retractions, No use of accessory muscles and clear to auscultation bilaterally AUSCULTATION: clear to auscultation bilaterally Cardio: COMMON NORMALS: regular rate, regular rhythm, S1 normal heart sound present, S2 normal heart sound present, No gallops present (Cardio), No clicks present (Cardio), No murmurs present (Cardio) and No rub (Cardio) RATE: regular rate RHYTHM: regular rhythm HEART SOUNDS: S1 normal heart sound present and S2 normal heart sound present PERIPHERAL PULSES: radial pulses present positive right 2+ and femoral pulses present positive right 2+ Neuro: COMMON NORMALS: patient oriented x3 and moves all extremities SENSORIUM/ORIENTATION: Yes oriented to person, Yes oriented to place and Yes oriented to time Skin: WOUNDS: Yes surgical site (no hematoma palpable) Details: no odor Discharge Data Studies Completed and Pending Pending at discharge Category Date Time Status 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 request 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 Routine Exams 11/26/24 10:00 Taken Laboratory Results WBC 8.71 10^3/uL (3.29-11.43) 11/27/24 04:00 RBC 5.41 10^6/uL (3.85-5.65) 11/27/24 04:00 Hgb 14.90 g/dL (11.27-16.99) 11/27/24 04:00 Hct 46.9 % (37-53) 11/27/24 04:00 MCV 86.7 fl (82-101) 11/27/24 04:00 MCH 27.5 pg (27-33) 11/27/24 04:00 MCHC 31.8 g/dL (30-55) 11/27/24 04:00 RDW 14.5 % (12.1-15.1) 11/27/24 04:00 Plt Count 203 10^3/cmm (157-399) 11/27/24 04:00 MPV 11.5 fL (7.4-10.4) H 11/27/24 04:00 Neut % (Auto) 69.0 % 11/27/24 04:00 Lymph % (Auto) 18.7 % 11/27/24 04:00 Bates % (Auto) 9.2 % 11/27/24 04:00 Eos % (Auto) 2.5 % 11/27/24 04:00 Baso % (Auto) 0.3 % 11/27/24 04:00 Neut # (Auto) 6.00 10^3/uL (1.8-7.7) 11/27/24 04:00 Lymph # (Auto) 1.6 10^3/uL (0.8-4.8) 11/27/24 04:00 Bates # (Auto) 0.8 10^3/uL (0.2-0.9) 11/27/24 04:00 Eos # (Auto) 0.2 10^3/uL (0.0-0.8) 11/27/24 04:00 Baso # (Auto) 0.0 10^3/uL (0.0-0.1) 11/27/24 04:00 Nucleated RBC % (auto) 0 % 11/27/24 04:00 Nucleated RBCs # 0.0 /100WBC 11/27/24 04:00 APTT 43.8 SECONDS (23.9-36.7) H 11/26/24 18:25 Sodium 137 mmol/L (136-145) 11/27/24 04:00 Potassium 3.9 mmol/L (3.5-5.1) 11/27/24 04:00 Chloride 103 mmol/L (98-107) 11/27/24 04:00 Carbon Dioxide 23 mmol/L (22-29) 11/27/24 04:00 Anion Gap 14.9 (5-19) 11/27/24 04:00 BUN 15 mg/dL (8-23) 11/27/24 04:00 Creatinine 0.8 mg/dL (0.7-1.2) 11/27/24 04:00 GFR Calculation 97.0 mL/min (90-130) 11/27/24 04:00 Glucose 144 mg/dL (65-115) H 11/27/24 04:00 POC Glucose 115 mg/dL (70-110) H 11/27/24 06:10 Calculated Osmolality 287 mOsm/kg (285-295) 11/27/24 04:00 Calcium 9.4 mg/dL (8.5-10.5) 11/27/24 04:00 Vitals Last Vital Signs Temp 97.8 F 11/27/24 07:39 Pulse 60 11/27/24 07:39 Resp 14 11/27/24 07:39 BP 157/77 11/27/24 07:39 Pulse Ox 94 11/27/24 07:39 O2 Del Method Room Air 11/27/24 07:39 Discharge Plan Discharge Patient Disposition: Home Prescriptions: Continued (DME) pen needle, diabetic [BD Ultra-Fine Micro Pen Needle] 32 gauge x 1/4 needle See Rx Instructions .Route Qty: 100 3RF Rx Instructions: three times a day oxycodone 5 mg capsule 5 mg PO BID PRN (Reason: Pain) furosemide 40 mg tablet 40 mg PO DAILY Qty: 30 1RF potassium chloride 20 mEq tablet extended release 20 meq PO BID acetaminophen 500 mg capsule 500 mg PO Q6H PRN (Reason: Pain) methocarbamol 500 mg tablet 500 mg PO TID lidocaine [Aspercreme (lidocaine)] 4 % adhesive patch,medicated 1 patch topical DAILY PRN (Reason: Pain) polyethylene glycol 3350 17 gram/dose powder 17 g PO DAILY insulin glargine [Lantus Solostar U-100 Insulin] 100 unit/mL (3 mL) insulin pen 35 unit SUBCUT QAM Qty: 15 3RF insulin aspart U-100 [Novolog PenFill U-100 Insulin] 100 unit/mL cartridge See Rx Instructions SUBCUT TID Rx Instructions: use ss, max daily dose 30 units. metformin 1,000 mg tablet 1,000 mg PO BIDWMEAL Qty: 180 3RF spironolactone 25 mg tablet 25 mg PO DAILY senna 8.6 mg capsule 8.6 mg PO DAILY clopidogrel 75 mg tablet 75 mg PO DAILY Qty: 90 1RF atorvastatin 80 mg tablet 80 mg PO QPM Qty: 90 0RF famotidine 20 mg tablet See Rx Instructions .ROUTE .COMPLEX Qty: 30 6RF Dose Instruction: Take 1 tablet by mouth once daily Rx Instructions: Take 1 tablet by mouth once daily metoprolol succinate 25 mg tablet extended release 24 hr See Rx Instructions .ROUTE .COMPLEX Qty: 30 6RF Dose Instruction: Take 1 tablet by mouth once daily Rx Instructions: Take 1 tablet by mouth once daily buspirone 7.5 mg tablet See Rx Instructions .ROUTE .COMPLEX Qty: 180 0RF Dose Instruction: Take 1 tablet by mouth twice daily Rx Instructions: Take 1 tablet by mouth twice daily gabapentin 300 mg capsule See Rx Instructions .ROUTE .COMPLEX Qty: 90 0RF Dose Instruction: Take 1 capsule by mouth once daily Rx Instructions: Take 1 capsule by mouth once daily nitroglycerin 0.4 mg tablet, sublingual 0.4 mg sublingual Q5M MDD 3 Qty: 60 0RF Rx Instructions: do not exceed 3 doses per episode aspirin 81 mg tablet,delayed release (DR/EC) 81 mg PO QAM Discharge Orders: Discharge Order (Routine); Ordered 11/27/24 Ordered By: Kayla Harden Referrals: Chastity Traore NP [Nurse Practitioner] - 7-10 days Diet: Advance as tolerated Activity: Resume usual activity Patient Instructions: Coronary Angioplasty (DC) Activity Restrictions/Additional Instructions: No lifting over 5 pounds for the next 2 days. Discharge Attestations Time Spent in Discharge Care*: less than 30 min Status at Discharge: Cognitive status at discharge: cognitively intact , Behavioral status at discharge: cooperative , Quality Metrics Clinical Quality Measures [ No reported AMI, CVA or VTE this stay] Coding Level of Care Code Acute Code for Chg Fwd
[2024-11-27] MEDS: clopidogrel 75 mg Tablet PO (10:03)
[2024-11-27] MEDS: spironolactone 25 mg Tablet PO (10:03)
--- NOTE | 2024-11-27 10:55 | PC.NURSE ---
Discharge Note Patient discharged to home via POV accompanied by daughter. Discharge instructions reviewed with patient and/or litigation claim representative. Mobile pharmacy medications and/or prescriptions provided. Belongings/home medications returned.
== END 2024-11-27 10:56 | disposition home or self-care (01) ==
LOC: CCL 09:12 → CSU 19:04
PROVIDERS: PCP Nurse Practitioner Family; Visit Provider Internal Medicine
DX: I25.10 Atherosclerotic heart disease of native coronary artery without angina pectoris (principal); I70.8 Atherosclerosis of other arteries; Z95.1 Presence of aortocoronary bypass graft; Z95.5 Presence of coronary angioplasty implant and graft; E78.5 Hyperlipidemia, unspecified
CPT/HCPCS: 36415; 36416; 80048; 82962; 85025; 85347; 85730; 92978; 93454; 96372; 96374; 96376; 99152; 99153; C1725; C1753; C1769; C1874; C1887; C1894; C9600; J1644; J1815; J2250; J3010; J3490; J7030; Q0163; Q9967

== ENCOUNTER → 2024-12-04 14:00 | Outpatient (BNVA) | payer BC, MEDICARE, SELFPAY | PROVIDERS: PCP Nurse Practitioner Family; Visit Provider Nurse Practitioner Family | DX: E11.9 Type 2 diabetes mellitus without complications (principal); I10 Essential (primary) hypertension; F41.9 Anxiety disorder, unspecified; Z09 Encounter for follow-up examination after completed treatment for conditions other than malignant neoplasm | CPT/HCPCS: 83036 ==

== ENCOUNTER → 2024-12-05 14:17 | Outpatient (BNVA) | payer BC, MEDICARE, OTHER, SELFPAY | PROVIDERS: PCP Nurse Practitioner Family; Visit Provider Nurse Practitioner Family | DX: I10 Essential (primary) hypertension (principal); Z09 Encounter for follow-up examination after completed treatment for conditions other than malignant neoplasm; Z95.1 Presence of aortocoronary bypass graft; E78.5 Hyperlipidemia, unspecified; R07.9 Chest pain, unspecified | CPT/HCPCS: 36415; 80048; 85025 ==

== ENCOUNTER → 2025-03-05 13:50 | Outpatient (BNVA) | payer BC, MEDICARE, OTHER, SELFPAY | PROVIDERS: PCP Nurse Practitioner Family; Visit Provider Nurse Practitioner Family | DX: I10 Essential (primary) hypertension (principal); E11.9 Type 2 diabetes mellitus without complications | CPT/HCPCS: 80053; 80061; 83036 ==

== ENCOUNTER → 2025-05-08 08:57 | Outpatient (BNVA) | payer BC, MEDICARE, SELFPAY | PROVIDERS: PCP Nurse Practitioner Family; Visit Provider Nurse Practitioner Family | DX: E11.65 Type 2 diabetes mellitus with hyperglycemia (principal) | CPT/HCPCS: 80053; 83036; 83519; 84681; 86337 ==

== ENCOUNTER → 2025-06-04 10:49 | Outpatient (BNVA) | payer BC, MEDICARE, SELFPAY | PROVIDERS: PCP Nurse Practitioner Family; Visit Provider Nurse Practitioner Family | DX: R07.9 Chest pain, unspecified (principal); R79.89 Other specified abnormal findings of blood chemistry | CPT/HCPCS: 71046; 84403 ==

== ENCOUNTER → 2025-08-08 09:30 | Outpatient (BNVA) | payer BC, MEDICARE, SELFPAY | PROVIDERS: PCP Nurse Practitioner Family; Visit Provider Nurse Practitioner Family | DX: I10 Essential (primary) hypertension (principal); E11.9 Type 2 diabetes mellitus without complications | CPT/HCPCS: 80053; 80061; 83036; 83880; 85025 ==